=== PATIENT | female | born 1965 ===

== ENCOUNTER 2023-05-11 13:45 | Emergency (ER) | payer OTHER, SELFPAY ==
[2023-05-11] VITALS (12 sets, daily range): BP systolic 136–147; BP diastolic 85–95; PULSE 86–103; RESP 18–20; TEMP 36.2; O2SAT 94–99; BMI 66.3
--- NOTE | 2023-05-11 14:12 | ED_ITS ---
HPI - General Adult General Time Seen by Provider: 14:13 Date Seen: 05/11/23 Chief complaint: Flank Pain Stated complaint: back pain, shortness of breath, vaginal bleeding Time Seen by Provider: 05/11/23 14:12 Source: patient and RN notes reviewed Mode of arrival: ambulatory Limitations: no limitations History of Present Illness HPI narrative: Yany is a 58-year-old female coming in with initially concern of a kidney stone. She has had a little right flank pain, sometimes she feels wrap around into the abdominal area. She is maybe noticed blood in her urination but on questioning she is actually wearing a pad. She notes if she coughs she will have bleeding. She admits she is not sure if the bloods from urine or vaginal. She is postmenopausal about 15 years ago. There is no fevers, able to eat and drink fine. She has had a history of a kidney stone in did have to have surgical intervention before. No fevers or chills. Related Data Home Medications Medication Instructions Recorded Confirmed DGL PO 11/09/22 pamabrom 50 mg tablet (Diurex Max) mg PO 11/09/22 11/09/22 slippery elm bark 400 mg capsule mg PO 11/09/22 11/09/22 Previous Rx's Medication Instructions Recorded omeprazole 20 mg capsule,delayed 20 mg PO QDAY #20 caps 12/01/22 release Allergies Allergy/AdvReac Type Severity Reaction Status Date / Time codeine Allergy Severe Verified 11/09/22 15:52 Review of Systems Status of ROS: Reports: 6 or more systems reviewed and unremarkable except as noted in History and below PFSH PFS Medical History Extreme obesity ?E66.8 - Other obesity (ICD-10) Chronic shortness of breath ?R06.02 - Shortness of breath (ICD-10) Depression ?F32.A - Depression, unspecified (ICD-10) TESSA on CPAP ?G47.33 - Obstructive sleep apnea (adult) (pediatric) (ICD-10) ?Z99.89 - Dependence on other enabling machines and devices (ICD-10) GERD (gastroesophageal reflux disease) ?K21.9 - Gastro-esophageal reflux disease without esophagitis (ICD-10) Family History Father Coronary artery disease Diabetes Brother CHF (congestive heart failure) Mother Osteoporosis Social History Smoking Status: Never smoker Do you use any of these nicotine containing products: None Second hand tobacco smoke exposure: Yes How often do you have a drink containing alcohol: never How often do you have six or more drinks on one occasion: Never AUDIT-C Alcohol total score: 0 Non-prescribed substance use: denies use service: No Exam Const: Vital Signs, click to edit/add: Vital Signs - 24 hr 05/11/23 13:57 05/11/23 16:01 05/11/23 16:15 Temperature 97.1 F L Pulse Rate 97 90 Pulse Rate [Pulse Oximeter] 100 Respiratory Rate 20 Blood Pressure Blood Pressure [Ri ght Forearm] 136/85 Pulse Oximetry 98 96 98 Oxygen Delivery Me thod Room Air 05/11/23 16:30 05/11/23 16:45 05/11/23 17:00 Temperature Pulse Rate 95 98 88 Pulse Rate [Pulse Oximeter] Respiratory Rate Blood Pressure Blood Pressure [Ri ght Forearm] Pulse Oximetry 96 99 97 Oxygen Delivery Me thod 05/11/23 17:21 05/11/23 17:30 05/11/23 17:38 Temperature Pulse Rate 103 H 92 86 Pulse Rate [Pulse Oximeter] Respiratory Rate 18 Blood Pressure 147/95 H Blood Pressure [Ri ght Forearm] Pulse Oximetry 97 96 96 Oxygen Delivery Me thod 05/11/23 17:45 05/11/23 18:00 05/11/23 18:15 Temperature Pulse Rate 101 H 98 96 Pulse Rate [Pulse Oximeter] Respiratory Rate Blood Pressure Blood Pressure [Ri ght Forearm] Pulse Oximetry 95 96 94 Oxygen Delivery Me thod This is a very pleasant 58-year-old female that is alert, interactive, no apparent distress. Sclera clear, conjugate gaze, normal speech. Face appears normal. Lungs are clear, good air entry, no wheezing or crackles. Can see an old midline lower lumbar well-healed surgical scar. She has no midline tenderness over back. There is no reproducible musculoskeletal/chest wall tenderness. CV regular rate and rhythm, no murmur, normal S1-S2. Abdomen is obese, not tender but body habitus makes any appreciate leblanc for any organomegaly very difficult. Patient still dressed, sitting in the chair in the room. She was ambulatory in the ED of her own accord. Documenting provider has reviewed patient's vital signs: yes Course Course ED Course: First and foremost, have reviewed with patient that we need to ascertain if this is vaginal bleeding verses blood in her urine. With her reports of wearing a pad and having blood with coughing and sneezing, do think this largely represents vaginal bleeding. Will have nursing staff help patient disrobed and at least try to do an external pelvic exam. Reevaluation(s) Time of Reevaluation #1: 14:43 Reevaluation #1: Just completed external pelvic exam, blood is definitely coming vaginally. Body habitus precludes bimanual examination. Will attempt to see if we can do a pelvic ultrasound. She believes she went through menopause about 15 years ago. At this time, will proceed with pelvic ultrasound, get basic labs including a CBC to ensure she is not significantly anemic. Confirmed with patient that she has been bleeding since last Sunday, did taper down for few days. Time of Reevaluation #2: 16:37 Reevaluation #2: Reviewed with patient we are proceeding with a CT of her abdomen, noncontrast as she is quite a difficult vascular access. That difficulty in finding blood for lab draw. In any event, I really want the CT for assessment of possible underlying urinary obstruction with stones. Reviewed that her urinalysis is difficult to interpret in the setting of her postmenopausal bleeding but there is a lot of white cells and no squamous epithelial cells. They tell me at this time that they just moved there cares down here so that they would have to travel to the [facility]. We did discuss the postmenopausal bleeding, we are waiting the radiologist over-read. We did discuss that she is going to need to see OB Gyne for further workup an endometrial biopsy, we reviewed that this would be outpatient at this time and will not happen in the ED. Time of Reevaluation #3: 18:40 Reevaluation #3: Reviewed with patient that her CT is not showing any acute intra-abdominal pathology, certainly no kidney stones. Reviewed with her that I did speak with the security investigator on-call, she agrees that she absolutely needs to follow-up. At this time, she is not hemodynamically unstable, hemoglobin is normal and bleeding is not at a concerning level causing symptomatology, can discharge for outpatient follow-up. I stressed to her the importance of follow-up in postmenopausal bleeding. It is imperative that endometrial cancer is ruled out or found early. She does understand this. Patient has had 2 pregnancies before. Consultations Consultation #1: Did speak with Dr. Fraser on-call for [facility]. Reviewed the case. She agrees that patient does need endometrial sampling. We did discuss potential concerns with her BMI, she does believe that she can follow-up with them and they can at least consult. Time: 18:33 Vital Signs Vital signs: Initial Vital Signs Temperature 97.1 F L 05/11/23 13:57 Temperature Source Temporal Artery Scan 05/11/23 13:57 Pulse Rate 100 05/11/23 13:57 Pulse Rhythm Regular 05/11/23 13:57 Respiratory Rate 20 05/11/23 13:57 Blood Pressure 136/85 05/11/23 13:57 Blood Pressure Mean 102 05/11/23 13:57 Blood Pressure Position Sitting 05/11/23 13:57 Pulse Oximetry 98 05/11/23 13:57 Oxygen Delivery Method Room Air 05/11/23 13:57 Vital Signs Temperature 97.1 F L 05/11/23 13:57 Pulse Rate 100 05/11/23 13:57 Respiratory Rate 20 05/11/23 13:57 Blood Pressure 136/85 05/11/23 13:57 Pulse Oximetry 98 05/11/23 13:57 Oxygen Delivery Method Room Air 05/11/23 13:57 Temperature 97.1 F L 05/11/23 13:57 Pulse Rate 96 05/11/23 18:15 Respiratory Rate 18 05/11/23 17:38 Blood Pressure 147/95 H 05/11/23 17:38 Pulse Oximetry 94 05/11/23 18:15 Oxygen Delivery Method Room Air 05/11/23 13:57 Medical Decision Making Lab Data Lab results reviewed: Yes I reviewed the patient's lab results Labs: Lab Results 05/11/23 05/11/23 Range/Units 15:45 15:50 WBC 12.55 H (4.50-11.00) K/uL RBC 5.42 H (4.00-5.20) m/uL Hgb 15.0 (12.0-16.0) gm/dL Hct 47.4 (33.0-51.0) % MCV 88 (80-100) fL MCH 28 (26-34) pg MCHC 32 (32-36) gm/dL RDW Coeff of Chente 14.3 (11.5-15.5) % Plt Count 246 (140-440) K/uL Neut % (Auto) 69.2 (42.0-72.0) % Lymph % (Auto) 20.6 (20-44) % [place] % (Auto) 7.2 (0.0-11.0) % Eos % (Auto) 2.6 (0.0-7.0) % Baso % (Auto) 0.1 (0.0-3.0) % Neut # (Auto) 8.70 H (1.7-7.0) K/uL Lymph # (Auto) 2.60 (0.90-2.90) K/uL [place] # (Auto) 0.90 (0.00-0.90) K/UL Eos # (Auto) 0.30 (0.00-0.50) K/uL Baso # (Auto) 0.00 (0.00-0.30) K/uL Abs Immat Gran (auto) 0.00 (0.00-0.30) K/uL Imm/Tot Granulo (auto) 0.3 % Sodium 139 (135-149) mmol/L Potassium 3.7 (3.6-5.1) mmol/L Chloride 105 (96-114) mmol/L Carbon Dioxide 21 (20-32) mmol/L Anion Gap 13 (7-15) mEq/L BUN 12 (7-30) mg/dL Creatinine 0.6 (0.5-1.5) mg/dL Estimated Creat Clear 95.68 Estimated GFR 104 ml/min Glucose 115 (60-115) mg/dL Calcium 9.3 (8.4-10.6) mg/dL Total Bilirubin 0.5 (0.1-1.5) mg/dL AST 40 H (12-35) U/L ALT 25 (4-35) U/L Alkaline Phosphatase 114 (40-150) U/L C-Reactive Protein 2.6 H (0.5-1.0) mg/dL Total Protein 8.5 H (6.0-8.3) g/dL Albumin 4.4 (3.3-5.0) g/dL Urine Color Brown A (Yellow) Urine Appearance Cloudy A (Clear) Urine pH 5.5 (5.0-8.5) Ur Specific [place] 1.020 (1.000-1.030) Urine Protein 1+ A (Negative) Urine Glucose (UA) Negative (Negative) Urine Ketones Negative (Negative) Urine Blood 3+ A (Negative) Urine Nitrite Negative (Negative) Urine Bilirubin Negative (Negative) Urine Urobilinogen 0.2 (0.2-1.0) Ur Leukocyte Esterase 1+ A (Negative) Urine RBC >100 A (0-2) Urine WBC >100 A (0-5) Ur Squamous Epith Cells None (None-Few) Urine Bacteria Few A (None) Imaging Data US pelvis: Attestation: I have reviewed the pertinent imaging results. Radiologist's impression: Patient: KATI REED Facility:?[facility] Patient ID:?[id number] Site Patient ID:?[id number]. Site :?[id number] Study:?US Pelvis TRANSABDOMINAL AND TRANSVAGINAL-05/11/2023 3:23:17 PM Ordering Physician:?Vitor Flaherty Final Report: INDICATION: Postmenopausal bleeding. TECHNIQUE: Ultrasound pelvis transabdominal and transvaginal for better assessment or to better visualize the endometrium. Real-time sonographic images with spectral and color Doppler imaging of the ovaries were obtained. COMPARISON: None. FINDINGS: Uterus: 9.2 x 4.7 x 5.5 cm. Normal echotexture of the myometrium. Incidental 2.0 centimeter fundal submucosal fibroid. Endometrium: Transvaginal imaging was performed to better evaluate the endometrium. Endometrial thickness measures 17 mm, with some scant vascularity. No sign of endometrial mass or fluid. Bilateral ovaries are not visualized. Cul-de-sac: No significant free fluid. IMPRESSION: Thickened endometrium for a postmenopausal female, measuring 17 millimeters. Recommend direct visualization for tissue sampling. Additional incidental 2.0 centimeter fundal submucosal fibroid. Dictated by Cole Chapman MD @ 05/11/2023 4:32:45 PM (Electronic Signature) CT scan - abdomen: Attestation: I have reviewed the pertinent imaging results. Radiologist's impression: Patient: KATI REED Facility:?[facility] Patient ID:?[id number] Site Patient ID:?[id number]. Site :?[id number] Study:?CT Abdomen/Pelvis W/O-05/11/2023 5:21:15 PM Ordering Physician:Omar Flaherty Final Report: INDICATION: Right flank pain. TECHNIQUE: CT abdomen and pelvis without contrast. COMPARISON: None. FINDINGS: Lower chest: Scattered atelectasis. Moderate hiatal hernia. Liver: Normal in size and attenuation. No suspicious masses. Gallbladder and bile ducts: Biliary sludge. Pancreas: Unremarkable. No mass or inflammation. Spleen: Normal in size. No masses. Adrenal glands: Tiny right adrenal nodule. Kidneys: Normal in size. Punctate left nonobstructing renal stone. No suspicious masses, or hydronephrosis. GI tract: Moderate colonic stool burden. Normal in caliber. No sign of mass or inflammation. Normal appendix. Vasculature: Abdominal aorta is normal in caliber. Lymph nodes: No lymphadenopathy. Peritoneum/Abdominal Wall: Tiny fat containing umbilical hernia. No sign of mass or infiltration. No free air or significant free fluid. Pelvis: Unremarkable. No pelvic masses. Bones: Unremarkable for age. IMPRESSION: No acute intra-abdominal/pelvic abnormality, including obstructive uropathy. Moderate colonic stool burden. Punctate left-sided nonobstructing renal stone. Please note that all CT scans at this facility use dose modulation, iterative reconstruction, and/or weight-based dosing when appropriate to reduce radiation dose to as low as reasonably achievable. Dictated by Cole Chapman MD @ 05/11/2023 6:25:52 PM (Electronic Signature) Critical Care Time Critical Care Time Critical Care Time: No Discharge Plan Discharge Clinical Impression: Post-menopausal bleeding Patient Disposition: Home, Self-Care Condition: Stable Instructions: Endometrial Biopsy (DC) Additional Instructions: You will need to have endometrial tissue obtained, hopefully they will be able to do this in office with an endometrial biopsy. [facility], phone number is [phone]. Let them know you were in the ER, that you are having postmenopausal bleeding and you need to get into the clinic to be evaluated. In the interim if your bleeding is becoming heavy where you are bleeding through heavy pad hourly for more than 2 hours, or feeling symptomatic such as lightheaded dizzy or short of breath, do need to be re-evaluated. Activity Level: Activity as Tolerated Prescriptions: No Action DGL PO slippery elm bark 400 mg capsule PO Diurex Max 50 mg tablet PO omeprazole 20 mg capsule,delayed release(DR/EC) 20 mg PO QDAY Qty: 20 0RF Follow Up/Referrals: Provider,Not a Local [Primary Care Provider] - Stand Alone Forms: MyHealth Info Instructions
--- NOTE | 2023-05-11 14:43 | CRLHL7_ITS ---
For Patients: As a result of the Century Cures Act, medical imaging exams and procedure reports are released immediately into your electronic medical record. You may view this report before your referring provider. If you have questions, please contact your health care provider. INDICATION: Postmenopausal bleeding. TECHNIQUE: Ultrasound pelvis transabdominal and transvaginal for better assessment or to better visualize the endometrium. Real-time sonographic images with spectral and color Doppler imaging of the ovaries were obtained. COMPARISON: None. FINDINGS: Uterus: 9.2 x 4.7 x 5.5 cm. Normal echotexture of the myometrium. Incidental 2.0 centimeter fundal submucosal fibroid. Endometrium: Transvaginal imaging was performed to better evaluate the endometrium. Endometrial thickness measures 17 mm, with some scant vascularity. No sign of endometrial mass or fluid. Bilateral ovaries are not visualized. Cul-de-sac: No significant free fluid. IMPRESSION: Thickened endometrium for a postmenopausal female, measuring 17 millimeters. Recommend direct visualization for tissue sampling. Additional incidental 2.0 centimeter fundal submucosal fibroid. Dictated by Cole Chapman MD @ 05/11/2023 4:32:45 PM (Electronically Signed)
[2023-05-11 15:57] LABS: Basophils Percent Auto 0.1 % (0.0-3.0); Eosinophils Percent Auto 2.6 % (0.0-7.0); Hematocrit 47.4 % (33.0-51.0); Immature Granulocytes Pct Auto 0.3 %; Lymphocytes Percent Auto 20.6 % (20-44); Mean Corpuscular HGB Conc 32 gm/dL (32-36); Mean Corpuscular Hemoglobin 28 pg (26-34); Mean Corpuscular Volume 88 fL (80-100); Monocytes Percent Auto 7.2 % (0.0-11.0); Neutrophils Percent Auto 69.2 % (42.0-72.0); Platelet Count* 246 K/uL (140-440); RDW Coefficient of Variation % 14.3 % (11.5-15.5); Red Blood Count 5.42 m/uL (4.00-5.20); White Blood Count* 12.55 K/uL (4.50-11.00)
[2023-05-11 16:05] LABS: Appearance Urine Cloudy (Clear); Bilirubin Urine Negative (Negative); Blood Urine 3+ (Negative); Color Urine Brown (Yellow); Glucose Urine Negative (Negative); Ketones Urine Negative (Negative); Leukocyte Esterase Urine 1+ (Negative); Nitrite Urine Negative (Negative); Protein Urine 1+ (Negative); Urobilinogen Urine 0.2 (0.2-1.0); pH Urine 5.5 (5.0-8.5)
[2023-05-11 16:13] LABS: Slide Review Reflex No
[2023-05-11 16:16] LABS: RBC Urine >100 (0-2); WBC Urine >100 (0-5)
[2023-05-11 16:17] LABS: Bacteria Urine Few
[2023-05-11 16:19] LABS: Albumin* 4.4 g/dL (3.3-5.0); Chloride* 105 mmol/L (96-114); Potassium* 3.7 mmol/L (3.6-5.1); Sodium* 139 mmol/L (135-149)
[2023-05-11 16:22] LABS: Alanine Aminotransferase* 25 U/L (4-35); Anion Gap 13 mEq/L (7-15); Aspartate Amino Transferase* 40 U/L (12-35); Bilirubin Total* 0.5 mg/dL (0.1-1.5); Blood Urea Nitrogen* 12 mg/dL (7-30); Calcium* 9.3 mg/dL (8.4-10.6); Carbon Dioxide* 21 mmol/L (20-32); Creatinine* 0.6 mg/dL (0.5-1.5); Est. Creatinine Clearance* 95.68; Estimated Glomerular Filt Rate 104 ml/min; Glucose* 115 mg/dL (60-115); Total Protein* 8.5 g/dL (6.0-8.3)
--- NOTE | 2023-05-11 16:31 | CRLHL7_ITS ---
For Patients: As a result of the Century Cures Act, medical imaging exams and procedure reports are released immediately into your electronic medical record. You may view this report before your referring provider. If you have questions, please contact your health care provider. INDICATION: Right flank pain. TECHNIQUE: CT abdomen and pelvis without contrast. COMPARISON: None. FINDINGS: Lower chest: Scattered atelectasis. Moderate hiatal hernia. Liver: Normal in size and attenuation. No suspicious masses. Gallbladder and bile ducts: Biliary sludge. Pancreas: Unremarkable. No mass or inflammation. Spleen: Normal in size. No masses. Adrenal glands: Tiny right adrenal nodule. Kidneys: Normal in size. Punctate left nonobstructing renal stone. No suspicious masses, or hydronephrosis. GI tract: Moderate colonic stool burden. Normal in caliber. No sign of mass or inflammation. Normal appendix. Vasculature: Abdominal aorta is normal in caliber. Lymph nodes: No lymphadenopathy. Peritoneum/Abdominal Wall: Tiny fat containing umbilical hernia. No sign of mass or infiltration. No free air or significant free fluid. Pelvis: Unremarkable. No pelvic masses. Bones: Unremarkable for age. IMPRESSION: No acute intra-abdominal/pelvic abnormality, including obstructive uropathy. Moderate colonic stool burden. Punctate left-sided nonobstructing renal stone. Please note that all CT scans at this facility use dose modulation, iterative reconstruction, and/or weight-based dosing when appropriate to reduce radiation dose to as low as reasonably achievable. Dictated by Cole Chapman MD @ 05/11/2023 6:25:52 PM (Electronically Signed)
[2023-05-11 17:13] LABS: Alkaline Phosphatase* 114 U/L (40-150)
[2023-05-11 17:32] LABS: C Reactive Protein* 2.6 mg/dL (0.5-1.0)
--- NOTE | 2023-05-13 12:25 | ED.NURSE ---
no treatment needed per Dr. Ho.
== END 2023-05-11 18:48 | disposition home or self-care (01) ==
PROVIDERS: Emergency Provider Family Medicine
DX: N92.4 Excessive bleeding in the premenopausal period (principal)
CPT/HCPCS: 36415; 74176; 76830; 76856; 80053; 81001; 84443; 85025; 86140; 87086; 87186; 99284; 99285

== ENCOUNTER 2023-08-13 12:28 | Outpatient (CLI) | payer OTHER, SELFPAY | END 2023-08-13 12:29 | disposition home or self-care (01) | PROVIDERS: PCP Family Medicine; Visit Provider Family Medicine | DX: R06.02 Shortness of breath (principal); Z13.228 Encounter for screening for other metabolic disorders; Z13.220 Encounter for screening for lipoid disorders; Z13.29 Encounter for screening for other suspected endocrine disorder | CPT/HCPCS: 80053; 80061; 83880; 84443 ==

== ENCOUNTER 2023-08-27 07:42 | Outpatient (CLI) | payer OTHER, SELFPAY | END 2023-08-27 07:43 | disposition home or self-care (01) | PROVIDERS: PCP Family Medicine; Visit Provider Family Medicine | DX: R06.02 Shortness of breath (principal) | CPT/HCPCS: 93306 ==

== ENCOUNTER 2023-09-20 08:14 | Outpatient (RCR) | payer OTHER, SELFPAY ==
[2023-09-20] MEDS: REGADENOSON 0.4 MG/5 ML SYRINGE IVP (09:15)
[2023-09-20] MEDS: SODIUM CHLORIDE 0.9 % (FLUSH) 10 ML SYRINGE IVF (09:15)
--- NOTE | 2023-09-20 09:34 | W.PM.STED ---
Stress Test Note Date Date Seen: 09/20/23 Date of test: 09/20/23 Providers Primary care provider: Lazaro Mckenzie Stress test physician: Krystina Adler Stress Test Note Stress test ordered: Lexiscan Indication for test: Shortness of breath Stress test medicine: Lexiscan Results discussion: Resting EKG: Sinus rhythm, 61 beats per minute. Some artifact. Poor R-wave progression in anterior precordial leads. Resting BP: 132/84 Stress test: Patient had a non walking Lexiscan. She had shortness of breath with the injection of the regadenoson. This resolved rather quickly. No chest pain noted. She had a maximal blood pressure of 176/77. No arrhythmia and no concerning ischemic change noted during EKG monitoring. Nuclear medicine images are pending to couple this test for full formal diagnostic. Patient was discharged from my portion of this test in stable condition. Impression: Subjective shortness of breath but negative EKG portion of this Lexiscan. Follow up suggested: Await nuclear medicine imaging to couple this for a full formal diagnostic.
[2023-09-20 09:43] VITALS: BP 166/77; PULSE 82
== END 2023-10-02 23:59 | disposition home or self-care (01) ==
LOC: STRESS 08:14
PROVIDERS: PCP Family Medicine; Visit Provider Family Medicine
DX: R06.02 Shortness of breath (principal); R07.9 Chest pain, unspecified
CPT/HCPCS: 78452; 93016; 93017; A9500; J2785

== ENCOUNTER 2024-10-02 11:55 | Outpatient (CLI) | payer OTHER, SELFPAY | END 2024-10-02 11:56 | disposition home or self-care (01) | LOC: NFLDREF 10-08 05:16 | PROVIDERS: PCP Family Medicine; Referring Provider Family Medicine; Visit Provider Family Medicine | DX: R73.03 Prediabetes (principal); Z13.6 Encounter for screening for cardiovascular disorders | CPT/HCPCS: 80053; 80061 ==

== ENCOUNTER 2024-10-16 06:21 | Outpatient (CLI) | payer OTHER, SELFPAY ==
--- NOTE | 2024-10-16 08:13 | P.ANES_ITS ---
Anesthesia Charges Start Date/Time Anesthesia Start Date: 10/16/24 Anesthesia Start Time: 07:32 Stop Date/Time Anesthesia Stop Date: 10/16/24 Anesthesia Stop Time: 08:10 Coding CPT Codes CPT Codes: ANES LWR INTST NDSC NOS - 43833 ([id number]) P3 - PATIENT W/SEVERE SYS DISEASE, QX - CHEMICAL PROCESS OPERATOR SVC W/ MD MED DIRECTION, QK - QUARTER SUPERVISOR 2-4 CNCRNT ANES PROC
--- NOTE | 2024-10-16 08:13 | W.ANESCHARGE ---
Anesthesia Charges Start Date/Time Anesthesia Start Date: 10/16/24 Anesthesia Start Time: 07:32 Stop Date/Time Anesthesia Stop Date: 10/16/24 Anesthesia Stop Time: 08:10 Coding CPT Codes CPT Codes: ANES LWR INTST NDSC NOS - 69504 ([id number]) P3 - PATIENT W/SEVERE SYS DISEASE, QX - RESIDENCY DIRECTOR SVC W/ MD MED DIRECTION, QK - DESIGN ANALYST 2-4 CNCRNT ANES PROC
--- NOTE | 2024-10-16 09:47 | P.ANES_ITS ---
Anesthesia Charges Start Date/Time Anesthesia Start Date: 10/16/24 Anesthesia Start Time: 07:32 Stop Date/Time Anesthesia Stop Date: 10/16/24 Anesthesia Stop Time: 08:10 Coding CPT Codes CPT Codes: ANES LWR INTST NDSC NOS - 36984 ([id number]) QK - ROTARY DERRICK OPERATOR 2-4 CNCRNT ANES PROC, QX - PERFUME COMPOUNDER SVC W/ MD MED DIRECTION, P3 - PATIENT W/SEVERE SYS DISEASE
--- NOTE | 2024-10-16 09:47 | W.ANESCHARGE ---
Anesthesia Charges Start Date/Time Anesthesia Start Date: 10/16/24 Anesthesia Start Time: 07:32 Stop Date/Time Anesthesia Stop Date: 10/16/24 Anesthesia Stop Time: 08:10 Coding CPT Codes CPT Codes: ANES LWR INTST NDSC NOS - 50452 ([id number]) QK - ALUMINUM BOAT INSPECTOR 2-4 CNCRNT ANES PROC, QX - CLINICAL CODER SVC W/ MD MED DIRECTION, P3 - PATIENT W/SEVERE SYS DISEASE
== END 2024-10-16 06:22 | disposition home or self-care (01) ==
LOC: OP CLINIC 06:22
PROVIDERS: PCP Family Medicine; Visit Provider Surgery
DX: Z12.11 Encounter for screening for malignant neoplasm of colon (principal); D12.2 Benign neoplasm of ascending colon; D12.0 Benign neoplasm of cecum; D12.3 Benign neoplasm of transverse colon; Z86.0109 Personal history of other colon polyps
CPT/HCPCS: 00811; 00812; 45385; 88305; J2704

== ENCOUNTER 2024-12-30 15:21 | Outpatient (CLI) | payer OTHER, SELFPAY ==
--- NOTE | 2024-12-30 15:40 | CRLHL7_ITS ---
For Patients: As a result of the Century Cures Act, medical imaging exams and procedure reports are released immediately into your electronic medical record. You may view this report before your referring provider. If you have questions, please contact your health care provider. INDICATION: BILATERAL SCREENING MAMMOGRAM, ASYMPTOMATIC 59 Y/O FEMALE COMPARISON: 12/08/2020, 11/27/2019, 08/14/2017 TECHNIQUE: Digital mammogram in CC and MLO projections including computer-aided detection (CAD) and tomosynthesis. BREAST COMPOSITION: There are scattered areas of fibroglandular density. FINDINGS: No suspicious findings. ASSESSMENT: BI-RADS 1 Negative RECOMMENDATION: Annual screening mammogram. A lay language report of this examination will be provided to the patient. Dictated by: Artemio Pace MD @ 01/05/2025 10:46:56 (Electronically Signed)
--- OUTSIDE RECORDS SUMMARY | 2024-12-31 00:31 | XMS_ITS | Encounter Summary ---
Author Organization [place] Address [address] [place] [address] Care Team Providers Care Corporate Associate Name Role Phone Sadie Rush MD Primary Care Provider [phone] Kimberly Astorga PA-C Primary Care Pr ovider Olivia Parish MD Primary Care Provider Olivia Parish MD Unavailable [phone] Olivia Parish MD Unavailable [phone] Olivia Parish MD Unavailable [phone] Chuck Clark MD Unavailable [phone] Serena Liriano MD Unavailable Amanda Miguel DO Unavailable [phone] Regan Knight MD Unavailable Olivia Parish MD Unavailable + [phone] Nya Harrell APRN HAND MARKER Unavaila ble Kimberly Astorga PA-C Unavailable Olivia Parish MD Unavailable [phone] Olivia Parish MD Unavailable [phone] Kimberly Astorga PA-C Unavailable Encounter Details Date Type Department Care Team (Late st Contact Info) Description 04/19/2012 MyC Medical Advice [facility] [id number] [place] [phone] Sadie Rush MD [address] [place] [address] Social History Tobacco Use Types Packs/Day Years Used Date Smoking Tobacco: Never Smokeless Tobacco: Never Alcohol Use Standard Drinks/Week Comments No 0 (1 standard drink = 0.6 oz pur e alcohol) Comments No Sex and Gender Information Value Date Recorded Sex Assigned at Not on file 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 Gender Identity Not on file Sexual Orientation Straight 10/28/2020 3: 40 PM CDT 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 on file Not on file Not on file documented as of this encounter Plan of Treatment Not on file documented as of this encounter Visit Diagnoses Not on filedocumented in this encounter Care Teams Corporate Associate Relationship Specialty Start Date End Date Sadie Rush MD PCP - General 11/21/07 07/05/14 Kimberly Astorga PA-C [address] [place] [address] PCP - General Physician Psychiatric Security Nurse 07/06/14 04/07/18 [place] [address] [place] [address] PCP - General Family Practice 04/08/18 [place] [address] [place] [address] PCP - Assigned PCP 08/05/17 09/03/18 [place] [address] [place] [address] Assigned PCP 11/23/19 12/04/20 [place] [address] [place] [address] Assigned PCP 08/05/17 11/22/19 Chuck Clark MD [address] [facility] [address] [place] [address] Assigned Heart and Vascular Provider 04/23/20 04/23/21 Serena Liriano MD 516 [facility] 88 [place], [place] [address] Assigned Cancer Care Provider 04/23/20 12/04/20 Amanda Miguel DO [address] [facility] 100 [place] [address] Assigned OBGYN Provider 04/23/20 Regan Knight MD [facility] [address] [place] [address] Assigned Surgical Provider 09/15/20 12/11/20 [place] [address] [place] [address] Assigned PCP 12/05/20 05/05/22 Nya Harrell, ADMINISTRATIVE SUPPORT COORDINATOR HAND MARKER [facility] 450 [place], [place] [address] Assigned Surgical Provider 12/12/20 03/05/21 Kimberly Astorga PA-C [address] [place] [address] Assigned PCP 05/06/22 10/13/22 [place] [address] [place] [address] Assigned PCP 12/02/22 11/21/23 [place] [address] [place] [address] Assigned PCP 10/14/22 12/01/22 Kimberly Astorga PA-C [address] [place] [address] Assigned PCP 11/22/23 05/23/24 documented as of this encounter
--- OUTSIDE RECORDS SUMMARY | 2024-12-31 00:31 | XMS_ITS | Encounter Summary ---
Author Organization [facility] Address [address] [place] [address] Care Team Providers Care Middle School Band Teacher Name Role Phone Sadie Rush MD Primary Care Provider [phone] Kimberly Astorga PA-C Primary Care Pr ovider Olivia Parish MD Primary Care Provider Olivai Parish MD Unavailable [phone] Olivia Parish MD Unavailable [phone] Olivia Parish MD Unavailable [phone] Chuck Clark MD Unavailable [phone] Serena Liriano MD Unavailable Amanda Miguel DO Unavailable [phone] Regan Knight MD Unavailable Olivia Parish MD Unavailable [phone] Nya Harrell APRN ICU TECH Unavaila ble Kimberly Astorga PA-C Unavailable Olivia Parish MD Unavailable [phone] Olivia Parish MD Unavailable [phone] Kimberly Astorga PA-C Unavailable Encounter Details Date Type Department Care Team (Late st Contact Info) Description 07/21/2011 MyC Medical Advice [facility] [address] [place] [phone] Sadie Rush MD [address] [place] [address] Social History Tobacco Use Types Packs/Day Years Used Date Smoking Tobacco: Never Smokeless Tobacco: Never Alcohol Use Standard Drinks/Week Comments Yes 0 (1 standard drink = 0.6 oz pur e alcohol) rare Comments No Sex and Gender Information Value Date Recorded Sex Assigned at Not on file Legal Sex Female 3:43 AM SAIL FINISHER HAND Gender Identity Not on file Sexual Orientation Straight 10/28/2020 3: 40 PM CDT 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 Not on file Not on file documented as of this encounter Plan of Treatment Not on file documented as of this encounter Visit Diagnoses Not on filedocumented in this encounter Care Teams Middle School Band Teacher Relationship Specialty Start Date End Date Sadie Rush MD PCP - General 11/21/07 07/05/14 Kimberly Astorga PA-C [address] [place] [address] PCP - General Physician Patent Paralegal 07/06/14 04/07/18 [place] [address] [place] [address] PCP - General Family Practice 04/08/18 [place] [address] [place] [address] PCP - Assigned PCP 08/05/17 09/03/18 [place] [address] [place] [address] Assigned PCP 11/23/19 12/04/20 [place] [address] [place] [address] Assigned PCP 08/05/17 11/22/19 Chuck Clark MD [address] [facility] [address] [place] [address] Assigned Heart and Vascular Provider 04/23/20 04/23/21 Serena Liriano MD 516 [facility] 88 [place], [place] [address] Assigned Cancer Care Provider 04/23/20 12/04/20 Amanda Miguel DO [address] [place] [facility] 100 [place] [address] Assigned OBGYN Provider 04/23/20 Regan Knight MD [facility] [address] [place] [address] Assigned Surgical Provider 09/15/20 12/11/20 [place] [address] [place] [address] Assigned PCP 12/05/20 05/05/22 Nya Harrell, ASSOCIATE VETERINARIAN ICU TECH [address] [facility] [address] [facility] 450 [place], [place] [address] Assigned Surgical Provider 12/12/20 03/05/21 Kimberly Astorga PA-C [address] [place] [address] Assigned PCP 05/06/22 10/13/22 [place] [address] [place] [address] Assigned PCP 12/02/22 11/21/23 [place] [address] [place] [address] Assigned PCP 10/14/22 12/01/22 Kimberly Astorga PA-C [address] [place] [address] Assigned PCP 11/22/23 05/23/24 documented as of this encounter
--- OUTSIDE RECORDS SUMMARY | 2024-12-31 00:31 | XMS_ITS | Encounter Summary ---
Author Organization [place] Address [address] [place] [address] Care Team Providers Care Dimensional Engineer Name Role Phone Olivia Parish MD Primary Care Provider Olivia Parish MD Unavailable [phone] Olivia Parish MD Unavailable [phone] Chuck Clark MD Unavailable [phone] Serena Liriano MD Unavailable Amanda Miguel DO Unavailable [phone] Regan Knight MD Unavailable Olivia Parish MD Unavailable [phone] Nya Harrell APRN COAT PADDER Unavaila ble Kimberly AstorgaC Unavailable Olivia Parish MD Unavailable [phone] Olivia Parish MD Unavailable [phone] Kimberly Astorga PA-C Unavailable Encounter Details Date Type Department Care Team (Late st Contact Info) Description 02/25/[address] [phone] Lance Betancourt PA-C [address] [place] [address] [place] [address] Social History Tobacco Use Types Packs/Day Years Used Date Smoking Tobacco: Never Smokeless Tobacco: Never Alcohol Use Standard Drinks/Week Comments No 0 (1 standard drink = 0.6 oz pur e alcohol) PHQ-2 Answer Date Recorded PHQ-2 Score 0 10/31/2018 Comments No Sex and Gender Information Value Date Recorded Sex Assigned at Not on file Legal Sex Female 3:43 AM E COMMERCE MERCHANT Gender Identity Not on file Sexual Orientation Straight 10/28/2020 3: 40 PM CDT 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 Not on file Not on file documented as of this encounter Plan of Treatment Not on file documented as of this encounter Visit Diagnoses Not on filedocumented in this encounter Additional Health Concerns Assessment Noted Time PHQ-9 Depression Total Score: 0 11/01/19 19 3:18 PM CDT documented as of this encounter Care Teams Dimensional Engineer Relationship Specialty Start Date End Date Olivia Parish MD PCP - General Family Practice 04/08/18 [place] [address] [place] [address] Assigned PCP 11/23/19 12/04/20 [place] [address] [place] [address] Assigned PCP 08/05/17 11/22/19 Chuck Clark MD [address] [place] [address] [place] [address] Assigned Heart and Vascular Provider 04/23/20 04/23/21 Serena Liriano MD 516 [facility] 88 [place] [address] Assigned Cancer Care Provider 04/23/20 12/04/20 Amanda Miguel DO [address] [facility] [place] 100 [place] [address] Assigned OBGYN Provider 04/23/20 Regan Knight MD [facility] [address] [place] [address] Assigned Surgical Provider 09/15/2006/21 [place] [address] [place] [address] Assigned PCP 12/05/20 05/05/22 Nya Harrell APRN COAT PADDER 420 [facility] 450 [place], [place] [address] Assigned Surgical Provider 12/12/2003/05/21 Kimberly Astorga PA-C [address] [place] [address] Assigned PCP 05/06/22 10/13/22 [place] [address] [place] [address] Assigned PCP 12/02/22 11/21/23 [place] [address] [place] [address] Assigned PCP 10/14/22 12/01/22 Kimberly Astorga PA-C [address] [place] [address] Assigned PCP 11/22/23 05/23/24 documented as of this encounter
--- OUTSIDE RECORDS SUMMARY | 2024-12-31 00:31 | XMS_ITS | Encounter Summary ---
Author Organization [place] Address [address] [place] [address] Care Team Providers Care Iron Worker Name Role Phone Olivia Parish MD Primary Care Provider Olivia Parish MD Unavailable [phone] Kimberly Astorga PA-C Unavailable Olivia Parish MD Unavailable [phone] Olivia Parish MD Unavailable [phone] Kimberly Astorga PA-C Unavailable Encounter Details Date Type Department Care Team (Late st Contact Info) Description 05/02/2021 [facility] Medical Advice [facility] [address] [phone] Lance Betancourt PA-C [address] [address] Social History Tobacco Use Types Packs/Day Years Used Date Smoking Tobacco: Never Smokeless Tobacco: Never Alcohol Use Standard Drinks/Week Comments No 0 (1 standard drink = 0.6 oz pur e alcohol) PHQ-2 Answer Date Recorded PHQ-2 Score 0 04/12/2021 Comments No Sex and Gender Information Value Date Recorded Sex Assigned at Not on file Legal Sex Female 3:43 AM STENCIL INSPECTOR Gender Identity Not on file Sexual Orientation Straight 10/28/2020 3: 40 PM CDT 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 No / Unsure 04/12/2021 4:44 PM CDT documented as of this encounter Plan of Treatment Not on file documented as of this encounter Visit Diagnoses Not on filedocumented in this encounter Additional Health Concerns Assessment Noted Time PHQ-9 Depression Total Score: 0 04/13/20 7:02 AM CDT documented as of this encounter Care Teams Iron Worker Relationship Specialty Start Date End Date Olivia Parish MD PCP - General Family Practice 04/08/18 [place] [address] [place] [address] Assigned PCP 12/05/20 05/05/22 Kimberly Astorga PA-C [address] [place] [address] Assigned PCP 05/06/22 10/13/22 [place] [address] [place] [address] Assigned PCP 12/02/22 11/21/23 [place] [address] [place] [address] Assigned PCP 10/14/22 12/01/22 Kimberly Astorga PA-C [address] [place] [address] Assigned PCP 11/22/23 05/23/24 documented as of this encounter
--- OUTSIDE RECORDS SUMMARY | 2024-12-31 00:31 | XMS_ITS | Encounter Summary ---
Author Organization [facility] Address [address] [place] [address] Care Team Providers Care Small Parts Assembler Name Role Phone Olivia Parish MD Primary Care Provider Olivia Parish MD Unavailable [phone] Olivia Parish MD Unavailable [phone] Chuck Clark MD Unavailable [phone] Serena Liriano MD Unavailable [phone] Amanda Miguel DO Unavailable [phone] Regan Knight MD Unavailable Olivia Parish MD Unavailable [phone] Nya Harrell APRN EMPLOYEE SERVICE OFFICER Unavaila ble Kimberly AstorgaC Unavailable Olivia Parish MD Unavailable [phone] Olivia Parish MD Unavailable [phone] Kimberly Astorga PA-C Unavailable Reason for Visit * Reason Onset Date Comments Miguel Ahart Communication 02/25/2019 Encounter Details Date Type Department Care Team (Late st Contact Info) Description 02/25/2019 [facility] [place] [address] [facility], [address] [place] [address] [place] [address] [address] [place], [place] [phone] MyChart Communication Social History Tobacco Use Types Packs/Day Years Used Date Smoking Tobacco: Never Smokeless Tobacco: Never Alcohol Use Standard Drinks/Week Comments No 0 (1 standard drink = 0.6 oz pur e alcohol) PHQ-2 Answer Date Recorded PHQ-2 Score 0 10/31/2018 Comments No Sex and Gender Information Value Date Recorded Sex Assigned at Not on file Legal Sex Female 3:43 AM MEDIA/INSTRUCTIONAL DESIGNER Gender Identity Not on file Sexual Orientation Straight 10/28/2020 3: 40 PM CDT 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 uS Valladares RN -- [employer] * Telephone Encounter - Olivia Parish MD - 02/26/2019 1:39 PM CDT Not sure what med she is talking about, if it is the naltrexone, she can just stop it * Telephone Encounter - Su Valladares RN - 02/25/2019 4:[address] Parish, Please see below. Thank you. Su Valladares RN -- [employer] documented in this encounter Plan of Treatment Not on file documented as of this encounter Visit Diagnoses Not on filedocumented in this encounter Additional Health Concerns Assessment Noted Time PHQ-9 Depression Total Score: 0 11/01/19 19 3:18 PM CDT documented as of this encounter Care Teams Small Parts Assembler Relationship Specialty Start Date End Date Olivia Parish MD PCP - General Family Practice 04/08/18 [place] [address] [place] [address] Assigned PCP 11/23/19 12/04/20 [place] [address] [place] [address] Assigned PCP 08/05/17 11/22/19 Chuck Clark MD [address] [facility] [address] [place] [address] Assigned Heart and Vascular Provider 04/23/20 04/23/21 Serena Liriano MD 6 [facility] 88 [place], [place] [address] Assigned Cancer Care Provider 04/23/20 12/04/20 Amanda Miguel DO [address] [facility] [place] [address] [place] [address] Assigned OBGYN Provider 04/23/20 Regan Knight MD [facility] [address] [place] 6967[address] Assigned Surgical Provider 09/15/2006/21 [place] [address] [place] [address] Assigned PCP 12/05/20 05/05/22 Nya Harrell APRN EMPLOYEE SERVICE OFFICER [address] [facility] [address] [facility] [address] [place] [address] Assigned Surgical Provider 12/12/2003/05/21 Kimberly Astorga PA-C [address] [place] [address] Assigned PCP 05/06/22 10/13/22 [place] [address] [place] [address] Assigned PCP 12/02/22 11/21/23 [place] [address] [place] [address] Assigned PCP 10/14/22 12/01/22 Kimberly Astorga PA-C [address] [place] [address] Assigned PCP 11/22/23 05/23/24 documented as of this encounter
--- OUTSIDE RECORDS SUMMARY | 2024-12-31 00:31 | XMS_ITS | Encounter Summary ---
Author Organization [place] Address [address] [place] [address] Care Team Providers Care Manager Supply Chain Planning Name Role Phone Olivia Parish MD Primary Care Provider Olivia Parish MD Unavailable + Olivia Parish MD Unavailable [phone] Chuck Clark MD Unavailable [phone] Serena Liriano MD Unavailable Amanda Miguel DO Unavailable [phone] Regan Knight MD Unavailable [phone] Olivia Parish MD Unavailable [phone] Nya Harrell APRN ROLLER LEVELER OPERATOR Unavaila ble Kimberly Astorga PA-C Unavailable Olivia Parish MD Unavailable [phone] Olivia Parish MD Unavailable [phone] Kimberly Astorga PA-C Unavailable Encounter Details Date Type Department Care Team (Late st Contact Info) Description 09/30/2019 MyC Medical Advice [address], [address] [place] [address] Sarai Mishra Social History Tobacco Use Types Packs/Day Years Used Date Smoking Tobacco: Never Smokeless Tobacco: Never Alcohol Use Standard Drinks/Week Comments No 0 (1 standard drink = 0.6 oz pur e alcohol) PHQ-2 Answer Date Recorded PHQ-2 Score 1 07/17/2019 Comments No Sex and Gender Information Value Date Recorded Sex Assigned at Not on file Legal Sex Female 3:43 AM IRRIGATION TEACHER Gender Identity Not on file Sexual Orientation Straight 10/28/2020 3: 40 PM CDT 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 No / Unsure 10/03/2019 8:06 AM CDT documented as of this encounter Plan of Treatment Not on file documented as of this encounter Visit Diagnoses Not on filedocumented in this encounter Additional Health Concerns Assessment Noted Time PHQ-9 Depression Total Score: 2 07/17/19 20 2:14 PM IRRIGATION TEACHER documented as of this encounter Care Teams Manager Supply Chain Planning Relationship Specialty Start Date End Date Olivia Parish MD PCP - General Family Practice 04/08/18 [place] [address] [place] [address] Assigned PCP 11/23/19 12/04/20 [place] [address] [place] [address] Assigned PCP 08/05/17 11/22/19 Chuck Clark MD [address] [facility] [address] [place] [address] Assigned Heart and Vascular Provider 04/23/20 04/23/21 Serena Liriano MD [address] [address] Assigned Cancer Care Provider 04/23/20 12/04/20 Amanda Miguel DO [address] [facility] [address] [place] [address] Assigned OBGYN Provider 04/23/20 Regan Knight MD [facility] [address] [place] [address] Assigned Surgical Provider 09/15/2006/21 [place] [address] [place] [address] Assigned PCP 12/05/20 05/05/22 Nya Harrell APRN ROLLER LEVELER OPERATOR [address] [place] [address] 450 [place] [address] Assigned Surgical Provider 12/12/2003/05/21 Kimberly Astorga PA-C [address] [place] [address] Assigned PCP 05/06/22 10/13/22 [place] [address] [place] [address] Assigned PCP 12/02/22 11/21/23 [place] [address] [place] [address] Assigned PCP 10/14/22 12/01/22 Kimberly Astorga PA-C [address] [place] [address] Assigned PCP 11/22/23 05/23/24 documented as of this encounter
--- OUTSIDE RECORDS SUMMARY | 2024-12-31 00:31 | XMS_ITS | Encounter Summary ---
Author Organization [place] Address [address] [place] [address] Care Team Providers Care Roof Painter Name Role Phone Olivia Parish MD Primary Care Provider Olivia Parish MD Unavailable + Olivia Parish MD Unavailable [phone] Chuck Clark MD Unavailable [phone] Serena Liriano MD Unavailable Amanda Miguel DO Unavailable [phone] Regan Knight MD Unavailable Olivia Parish MD Unavailable [phone] Nya Harrell APRN BILINGUAL SPANISH INBOUND SALES Unavaila ble Kimberly Astorga PA-C Unavailable Olivia Parish MD Unavailable [phone] Olivia Parish MD Unavailable [phone] Kimberly Astorga PA-C Unavailable Encounter Details Date Type Department Care Team (Late st Contact Info) Description 10/17/2019 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 No / Unsure 10/10/2019 9:10 AM CDT documented as of this encounter Plan of Treatment Not on file documented as of this encounter Visit Diagnoses Not on filedocumented in this encounter Additional Health Concerns Assessment Noted Time PHQ-9 Depression Total Score: 2 07/17/19 20 2:14 PM ACCOUNTING LECTURER documented as of this encounter Care Teams Roof Painter Relationship Specialty Start Date End Date Olivia Parish MD PCP - General Family Practice 04/08/18 [place] [address] [place] [address] Assigned PCP 11/23/19 12/04/20 [place] [address] [place] [address] Assigned PCP 08/05/17 11/22/19 Chuck Clark MD [address] [place] [address] [place] [address] Assigned Heart and Vascular Provider 04/23/20 04/23/21 Serena Liriano MD [address] [facility] 88 [place] [address] Assigned Cancer Care Provider 04/23/20 12/04/20 Amanda Miguel DO [address] [facility] [address] [place] [address] Assigned OBGYN Provider 04/23/20 Regan Knight MD [facility] [address] [place] [address] Assigned Surgical Provider 09/15/2006/21 [place] [address] [place] [address] Assigned PCP 12/05/20 05/05/22 Nya Harrell APRN BILINGUAL SPANISH INBOUND SALES 420 [facility] 450 [place], [place] [address] Assigned Surgical Provider 12/12/2003/05/21 Kimberly Astorga PA-C [address] [place] [address] Assigned PCP 05/06/22 10/13/22 [place] [address] [place] [address] Assigned PCP 12/02/22 11/21/23 [place] [address] [place] [address] Assigned PCP 10/14/22 12/01/22 Kimberly Astorga PA-C [address] [place] [address] Assigned PCP 11/22/23 05/23/24 documented as of this encounter
--- OUTSIDE RECORDS SUMMARY | 2024-12-31 00:31 | XMS_ITS | Encounter Summary ---
Author Organization [place] Address [address] [place] [address] Care Team Providers Care Auricular Detoxification Specialist Name Role Phone Olivia Parish MD Primary Care Provider Olivia Parish MD Unavailable + Olivia Parish MD Unavailable [phone] Chuck Clark MD Unavailable [phone] Serena Liriano MD Unavailable Amanda Miguel DO Unavailable [phone] Regan Knight MD Unavailable [phone] Olivia Parish MD Unavailable [phone] Nya Harrell APRN CONTRACT NEGOTIATOR Unavaila ble Kimberly Astorga PA-C Unavailable Olivia Parish MD Unavailable [phone] Olivia Parish MD Unavailable [phone] Kimberly Astorga PA-C Unavailable Encounter Details Date Type Department Care Team (Late st Contact Info) Description 08/25/2019 MyC Medical Advice [address], [address] [place] [address] Sarai Mishra Social History Tobacco Use Types Packs/Day Years Used Date Smoking Tobacco: Never Smokeless Tobacco: Never Alcohol Use Standard Drinks/Week Comments No 0 (1 standard drink = 0.6 oz pur e alcohol) PHQ-2 Answer Date Recorded PHQ-2 Score 1 07/17/2019 Comments No Sex and Gender Information Value Date Recorded Sex Assigned at Not on file Legal Sex Female 3:43 AM ENVIRONMENTAL HEALTH SAFETY MANAGER Gender Identity Not on file Sexual Orientation Straight 10/28/2020 3: 40 PM CDT 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 Not on file Not on file documented as of this encounter Plan of Treatment Not on file documented as of this encounter Visit Diagnoses Not on filedocumented in this encounter Additional Health Concerns Assessment Noted Time PHQ-9 Depression Total Score: 2 07/17/19 20 2:14 PM ENVIRONMENTAL HEALTH SAFETY MANAGER documented as of this encounter Care Teams Auricular Detoxification Specialist Relationship Specialty Start Date End Date Olivia Parish MD PCP - General Family Practice 04/08/18 [place] [address] [place] [address] Assigned PCP 11/23/19 12/04/20 [place] [address] [place] [place] [address] Assigned PCP 08/05/17 11/22/19 Chuck Clark MD [address] [facility] [address] [place] [address] Assigned Heart and Vascular Provider 04/23/20 04/23/21 Serena Liriano MD [address] 229545 Assigned Cancer Care Provider 04/23/20 12/04/20 Amanda Miguel DO [address] [place] [address] Assigned OBGYN Provider 04/23/20 Regan Knight MD [facility] [address] [place] 235205 Assigned Surgical Provider 09/15/2006/21 [place] [address] [place] [address] Assigned PCP 12/05/20 05/05/22 Nya Harrell APRN CONTRACT NEGOTIATOR [address] [place] [address] [address] [place], [place] [address] Assigned Surgical Provider 12/12/2003/05/21 Kimberly Astorga PA-C [address] [place] [address] Assigned PCP 05/06/22 10/13/22 [place] [address] [place] [address] Assigned PCP 12/02/22 11/21/23 [place] [address] [place] [address] Assigned PCP 10/14/22 12/01/22 Kimberly Astorga PA-C [address] [place] [address] Assigned PCP 11/22/23 05/23/24 documented as of this encounter
--- OUTSIDE RECORDS SUMMARY | 2024-12-31 00:31 | XMS_ITS | Encounter Summary ---
Author Organization [place] Address [facility] [place] [address] Care Team Providers Care Curriculum Counselor Name Role Phone Olivia Parish MD Primary Care Provider Olivia Parish MD Unavailable [phone] Kimberly Astorga PA-C Unavailable Olivia Parish MD Unavailable [phone] Olivia Parish MD Unavailable [phone] Kimberly Astorga PA-C Unavailable Encounter Details Date Type Department Care Team (Late st Contact Info) Description 04/29/2021 Miguel A Medical [facility] [address] [phone] Surinder Hill CMA Social History Tobacco Use Types Packs/Day Years Used Date Smoking Tobacco: Never Smokeless Tobacco: Never Alcohol Use Standard Drinks/Week Comments No 0 (1 standard drink = 0.6 oz pur e alcohol) PHQ-2 Answer Date Recorded PHQ-2 Score 0 04/12/2021 Comments No Sex and Gender Information Value Date Recorded Sex Assigned at Not on file Legal Sex Female 3:43 AM CAREER COORDINATOR Gender Identity Not on file Sexual Orientation Straight 10/28/2020 3: 40 PM CDT 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 Not on file Not [...] documented as of this encounter Care Teams Curriculum Counselor Relationship Specialty Start Date End Date Olivia Parish MD PCP - General Family Practice 04/08/18 [place] [address] [place] [address] Assigned PCP 12/05/20 05/05/22 Kimberly Astorga PA-C [address] [place] [address] Assigned PCP 05/06/22 10/13/22 [place] [address] [place] [address] Assigned PCP 12/02/22 11/21/23 [place] [address] [place] [place] [address] Assigned PCP 10/14/22 12/01/22 Kimberly Astorga PA-C [address] [place] [address] Assigned PCP 11/22/23 05/23/24 documented as of this encounter
--- OUTSIDE RECORDS SUMMARY | 2024-12-31 00:31 | XMS_ITS | Encounter Summary ---
Author Organization [facility] Address [address] [place] [address] Care Team Providers Care Process Manufacturing Engineer Name Role Phone Sadie Rush MD Primary Care Provider [phone] Kimberly Astorga PA-C Primary Care Pr ovider Olivia Parish MD Primary Care Provider Olivia Parish MD Unavailable [phone] Olivia Parish MD Unavailable [phone] Olivia Parish MD Unavailable [phone] Chuck Clark MD Unavailable [phone] Serena Liriano MD Unavailable Amanda Miguel DO Unavailable [phone] Regan Knight MD Unavailable Olivia Parish MD Unavailable [phone] Nya Harrell APRN VIDEO SURVEILLANCE TECHNICIAN Unavaila ble Kimberly Astorga PA-C Unavailable Olivia Parish MD Unavailable [phone] Olivia Parish MD Unavailable [phone] Kimberly Astorga PA-C Unavailable Encounter Details Date Type Department Care Team (Late st Contact Info) Description 01/08/2013 [facility] [address] [phone] Lilia Alva Social History Tobacco Use Types Packs/Day Years Used Date Smoking Tobacco: Never Smokeless Tobacco: Never Alcohol Use Standard Drinks/Week Comments No 0 (1 standard drink = 0.6 oz pur e alcohol) Comments No Sex and Gender Information Value Date Recorded Sex Assigned at Not on file 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 Gender Identity Not on file Sexual Orientation Straight 10/28/2020 3: 40 PM CDT 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 Not on file Not on file documented as of this encounter Plan of Treatment Not on file documented as of this encounter Visit Diagnoses Not on filedocumented in this encounter Care Teams Process Manufacturing Engineer Relationship Specialty Start Date End Date Sadie Rush MD PCP - General 11/21/07 07/05/14 Kimberly Astorga PA-C [address] [place] [address] PCP - General Physician Section Laborer 07/06/14 04/07/18 [place] [address] [place] [address] PCP - General Family Practice 04/08/18 [place] [address] [place] [place] [address] PCP - Assigned PCP 08/05/17 09/03/18 [place] [address] [place] [place] [address] Assigned PCP 11/23/19 12/04/20 [place] [address] [place] [place] [address] Assigned PCP 08/05/17 11/22/19 Chuck Clark MD [address] [facility] [address] [place] [address] Assigned Heart and Vascular Provider 04/23/20 04/23/21 Serena Liriano MD 516 [facility] 88 [place], [place] [address] Assigned Cancer Care Provider 04/23/20 12/04/20 Amanda Miguel DO [address] [facility] 100 [place] [address] Assigned OBGYN Provider 04/23/20 Regan Knight MD [facility] [address] [place] [address] Assigned Surgical Provider 09/15/20 12/11/20 [place] [address] [place] [place] [address] Assigned PCP 12/05/20 05/05/22 Nya Harrell APRN VIDEO SURVEILLANCE TECHNICIAN 420 [facility] 450 [place], [place] [address] Assigned Surgical Provider 12/12/20 03/05/21 Kimberly Astorga PA-C [address] [place] [address] Assigned PCP 05/06/22 10/13/22 [place] [address] [place] [address] Assigned PCP 12/02/22 11/21/23 [place] [address] [place] [address] Assigned PCP 10/14/22 12/01/22 Kimbrely Astorga PA-C [address] [place] [address] Assigned PCP 11/22/23 05/23/24 documented as of this encounter
--- OUTSIDE RECORDS SUMMARY | 2024-12-31 00:31 | XMS_ITS | Encounter Summary ---
Author Organization [place] Address [facility] [place] [address] Care Team Providers Care Latex Thread Machine Operator Name Role Phone Olivia Parish MD Primary Care Provider Olivia Parish MD Unavailable [phone] Kimberly Astorga PA-C Unavailable Olivia Parish MD Unavailable [phone] Olivia Parish MD Unavailable [phone] Kimberly Astorga PA-C Unavailable Encounter Details Date Type Department Care Team (Late st Contact Info) Description 04/29/2021 Miguel A Medical [facility] [address] [phone] Surinder Hill CMA Social History Tobacco Use Types Packs/Day Years Used Date Smoking Tobacco: Never Smokeless Tobacco: Never Alcohol Use Standard Drinks/Week Comments No 0 (1 standard drink = 0.6 oz pur e alcohol) PHQ-2 Answer Date Recorded PHQ-2 Score 0 04/12/2021 Comments No Sex and Gender Information Value Date Recorded Sex Assigned at Not on file Legal Sex Female 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 Gender Identity Not on file Sexual Orientation Straight 10/28/2020 3: 40 PM CDT 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 Not on file Not [...] documented as of this encounter Care Teams Latex Thread Machine Operator Relationship Specialty Start Date End Date Olivia Parish MD PCP - General Family Practice 04/08/18 [place] [address] [place] [address] Assigned PCP 12/05/20 05/05/22 Kimberly Astorga PA-C [address] [place] [address] Assigned PCP 05/06/22 10/13/22 [place] [address] [place] [address] Assigned PCP 12/02/22 11/21/23 [place] [address] [place] [place] [address] Assigned PCP 10/14/22 12/01/22 Kimberly Astorga PA-C [address] [place] [address] Assigned PCP 11/22/23 05/23/24 documented as of this encounter
--- OUTSIDE RECORDS SUMMARY | 2024-12-31 00:32 | XMS_ITS | Encounter Summary ---
Author Organization [facility] Address [address] [place] [address] Care Team Providers Care Barrel Rifler Button Name Role Phone Olivia Parish MD Primary Care Provider Olivia Parish MD Unavailable [phone] Chuck Clark MD Unavailable [phone] Serena Liriano MD Unavailable Amanda Miguel DO Unavailable [phone] Regan Knight MD Unavailable Olivia Parish MD Unavailable [phone] Nya Harrell APRN ASSOCIATE BRAND MANAGER Unavaila ble Kimberly Astorga PA-C Unavailable Olivia Parish MD Unavailable [phone] Olivia Parish MD Unavailable [phone] Kimberly Astorga PA-C Unavailable Reason for Visit * Reason Onset Date Comments Medication Update 11/26/2019 Biotin Encounter Details Date Type Department Care Team (Late st Contact Info) Description 11/26/2019 MyC Medical Advice [address], [address] [place] [address] [place] [address] [place] [address] Medication Update (Biotin) Social History Tobacco Use Types Packs/Day Years Used Date Smoking Tobacco: Never Smokeless Tobacco: Never Alcohol Use Standard Drinks/Week Comments No 0 (1 standard drink = 0.6 oz pur e alcohol) PHQ-2 Answer Date Recorded PHQ-2 Score 1 11/26/2019 Comments No Sex and Gender Information Value Date Recorded Sex Assigned at Not on file 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 No / Unsure 11/27/2019 1:57 PM CDT documented as of this encounter Miscellaneous Notes * Telephone Encounter - Olivia Parish MD - 11/27/2019 2:07 PM CDT Please add to her med list and thank her for the update. I will look this up for further info documented in this encounter Plan of Treatment Not on file documented as of this encounter Visit Diagnoses Diagnosis Hair loss- Primary Alopecia, unspecified documented in this encounter Additional Health Concerns Assessment Noted Time PHQ-9 Depression Total Score: 2 11/26/19 20 8:22 AM CDT documented as of this encounter Care Teams Barrel Rifler Button Relationship Specialty Start Date End Date Olivia Parish MD PCP - General Family Practice 04/08/18 [place] [address] [place] [place] [address] Assigned PCP 5/24/20 6/5/21 Chuck Clark MD 6405 [facility] [address] [place] [address] Assigned Heart and Vascular Provider 04/23/20 04/23/21 Serena Liriano MD 516 [facility] 88 [place], [place] [address] Assigned Cancer Care Provider 04/23/20 12/04/20 Amanda Miguel DO [address] [facility] 100 [place] [address] Assigned OBGYN Provider 04/23/20 Regan Knight MD [facility] [address] [place] [address] Assigned Surgical Provider 09/15/2006/21 [place] [address] [place] [address] Assigned PCP 12/05/20 05/05/22 Nya Harrell APRN ASSOCIATE BRAND MANAGER 420 [facility] 450 [place] [address] Assigned Surgical Provider 12/12/2003/05/21 Kimberly Astorga PA-C [address] [place] [address] Assigned PCP 05/06/22 10/13/22 [place] [address] [place] [place] [address] Assigned PCP 12/02/22 11/21/23 [place] [address] [place] [place] [address] Assigned PCP 10/14/22 12/01/22 Kimberly Astorga PA-C [address] [place] [address] Assigned PCP 11/22/23 05/23/24 documented as of this encounter"
--- OUTSIDE RECORDS SUMMARY | 2024-12-31 00:32 | XMS_ITS | Encounter Summary ---
Author Organization [facility] Address [address] [place] [address] Care Team Providers Care Ammonium Nitrate Crystallizer Name Role Phone Sadie Rush MD Primary Care Provider [phone] Kimberly Astorga PA-C Primary Care Pr ovider Olivia Parish MD Primary Care Provider Olivia Parish MD Unavailable [phone] Olivia Parish MD Unavailable [phone] Olivia Parish MD Unavailable [phone] Chuck Clark MD Unavailable [phone] Serena Liriano MD Unavailable Amanda Miguel DO Unavailable [phone] Regan Knight MD Unavailable Olivia Parish MD Unavailable [phone] Nya Harrell APRN EDUCATION AND TRAINING MANAGER Unavaila ble Kimberly Astorga PA-C Unavailable Olivia Parish MD Unavailable [phone] Olivia Parish MD Unavailable [phone] Kimberly Astorga PA-C Unavailable Encounter Details Date Type Department Care Team (Late st Contact Info) Description 08/13/2010 Medical Correspondence [facility] [address] [place] [phone] Sadie Rush MD [address] [place] [address] Social History Tobacco Use Types Packs/Day Years Used Date Smoking Tobacco: Never Alcohol Use Standard Drinks/Week Comments Yes 0 (1 standard drink = 0.6 oz pur e alcohol) rare Comments No Sex and Gender Information Value Date Recorded Sex Assigned at Not on file 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 Gender Identity Not on file Sexual Orientation Straight 10/28/2020 3: 40 PM CDT 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 Not on file Not on file documented as of this encounter Plan of Treatment Not on file documented as of this encounter Visit Diagnoses Not on filedocumented in this encounter Care Teams Ammonium Nitrate Crystallizer Relationship Specialty Start Date End Date Sadie Rush MD PCP - General 11/21/07 07/05/14 Kimberly Astorga PA-C [address] [place] [address] PCP - General Physician Geriatric Case Manager 07/06/14 04/07/18 [place] [address] [place] [address] PCP - General Family Practice 04/08/18 [place] [address] [facility] [place] [place] [address] PCP - Assigned PCP 08/05/17 09/03/18 [place] [address] [place] [place] [address] Assigned PCP 11/23/19 12/04/20 [place] [address] [address] [place] 60[address] Assigned PCP 08/05/17 11/22/19 Chuck Clark MD 6405 [facility] [address] [place] [address] Assigned Heart and Vascular Provider 04/23/20 04/23/21 Serena Liriano MD 516 [facility] 88 [place] [address] Assigned Cancer Care Provider 04/23/20 12/04/20 Amanda Miguel DO [address] [facility] 100 [place] [address] Assigned OBGYN Provider 04/23/20 Regan Knight MD [facility] [address] [address] Assigned Surgical Provider 09/15/20 12/11/20 [place] [address] [place] [place] [address] Assigned PCP 12/05/20 05/05/22 Nya Harrell APRN EDUCATION AND TRAINING MANAGER [address] [place] [address] 450 [place] [address] Assigned Surgical Provider 12/12/20 03/05/21 Kimberly Astorga PA-C [address] [place] [address] Assigned PCP 05/06/22 10/13/22 [place] [address] [place] [address] Assigned PCP 12/02/22 11/21/23 [place] [address] [address] [place] 63247[address] Assigned PCP 10/14/22 12/01/22 Kimberly Astorga PA-C [address] [place] [address] Assigned PCP 11/22/23 05/23/24 documented as of this encounter
--- OUTSIDE RECORDS SUMMARY | 2024-12-31 00:32 | XMS_ITS | Clinical Summary ---
Author Organization [place] Address [address] [place] [address]. [place] [address] Care Team Providers Care President [employer] Name Role Phone Olivia Praish MD Primary Care Provider Allergies Active Allergy Reactions Criticality Noted Date Comments Codeconcepcion Nausea 01/15/2015 Makes her sick Medications multivitamin, therapeutic (THERA-VIT) TABS Take 1 tablet by mouth daily Active [place]-3 Fatty Acids (FISH OIL EXTRA STRENGTH) 1200 MG CAPS Take 1,200 mg by mouth daily Active metoprolol succinate ER (TOPROL-XL) 25 MG 24 hr tabletIndications:PS VT (paroxysmal supraventricular tachycardia),Lighthe adedness Take 0.5 tablets (12.5 mg) by mouth daily 45 tablet 1 1 Active Active Problems Problem Noted Date Diagnosed Date Morbid obesity 12/02/2020 External hemorrhoids 07/10/2019 Overview (07/10/2019): Added automatically from request for surgery [id number] Obstructive sleep apnea syndrome 08/03/2017 Nephrolithiasis 07/17/2014 Leiomyoma of uterus 05/12/2013 Overview (04/02/2015): Problem list name updated by automated process. Provider to review Low HDL (under 40) 04/19/2012 Anxiety 08/21/2011 GERD (gastroesophageal reflux disease) 2 CARDIOVASCULAR SCREENING; LDL GOAL LESS THAN 160 05/01/2010 Menometrorrhagia 03/09/2010 Major depressive disorder, recurrent episode, se gwendolyn 02/25/2010 Overview (04/02/2015): Problem list name updated by automated process. Provider to review PSVT (paroxysmal supraventricular tachycardia) Resolved Problems Problem Noted Date Diagnosed Date Resolved Date Chronic right-sided low back pain 11/14/2019 02/16/2020 Generalized muscle weakness 11/14/2019 02/16/2020 Morbid obesity 05/10/2017 02/16/2020 Morbid obesity with BMI of 50.0-59.9, adult 05/12/2013 03/15/2018 Weight loss, intentional 04/15/2012 Obesity, Class III, BMI 40-4 9.9 (morbid obesity) 04/15/2012 03/15/2018 Pap smear cannot exclude hig h grade squamous intraepithelial lesion (ASC-H) 02/09/2010 0 Overview (02/05/2020): 11/06/07: ASCUS, Neg HPV 02/09/10: ASC H pap. 04/08/10: [place] - RADHA I 10/24/10: NIL pap, neg HPV 04/15/12: NIL pap. Plan pap in 1 yr. 05/12/12: NIL pap 05/12/13: NIL pap, neg HPV. Plan cotest pap & HPV in 3 years. 11/28/16: NIL pap, Neg HR HPV. Plan cotest in 3 years. 01/29/20: NIL Pap, Neg HR HPV. Plan routine screening. Obesity 11/06/2007 03/15/2018 Overview (04/02/2015): Problem list name updated by automated process. Provider to review Immunizations Immunization Administration Dates Next Due HepA-Peds, Unspecified 05/08/1996 Influenza Vaccine 18-64 (Flublok) 04/12/2021 TD,PF 7+ (Tenivac) 11/05/2005 TDAP Vaccine (Boostrix) 04/15/2012 Td (Adult), Adsorbed 02/24/2005,09/17/1995 Zoster recombinant adjuvanted (Shingrix) 020,11/19/2019 Family History Medical History Relation Comments Heart Disease Brother 1 congenital heart defect IHS-alive 39 yo Heart Failure Brother 2 alive 46 Substance Abuse Brother 3 Coronary Artery Disease Brother 4 Genetic Disorder Brother 4 IHS Substance Abuse Brother 4 Obesity Brother 5 Arthritis Father back Coronary Artery Disease Father Diabetes Father at 6 4 years old Heart Disease Father Rhematic Fever Obesity Father Respiratory Father Ashma Cardiovascular Maternal Grandfather at 40 from heart attack Alzheimer Disease Maternal Grandmother Hyperlipidemia Mother Osteoporosis Mother early stages-bor n in 1942 Obesity Nephew Went on keto t last 2 years lost over 200 lbs normal bmi now Family History Negative Paternal Grandfather Anesthesia Reaction Paternal Grandmother Family History Negative Paternal Grandmother Obesity Paternal Grandmother Breast Cancer No family hx of Colon Cancer No family hx of Ovarian Cancer No family hx of Uterine Cancer No family hx of Relation Status Comments Brother 1 Brother 2 Brother 3 Brother 4 Brother 5 Father Maternal Grandfather Maternal Grandmother Mother Alive Nephew Paternal Grandfather Paternal Grandmother Son Alive Social History Tobacco Use Types Packs/Day Years Used Date Smoking Tobacco: Never Smokeless Tobacco: Never Alcohol Use Standard Drinks/Week Comments No 0 (1 standard drink = 0.6 oz pur e alcohol) PHQ-2 Answer Date Recorded PHQ-2 Score 0 04/12/2021 Adolescent Education Answer Date Record ed Getting School Help Needed Not on file 04/16 Comments No Sex and Gender Information Value Date Recorded Sex Assigned at Not on file Legal Sex Female 3: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 Gender Identity Not on file Sexual Orientation Straight 10/28/2020 3: 40 PM CDT 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 Not on file Not on file Last Filed Vital Signs Vital Sign Reading Time Taken Comments Blood Pressure 113/62 04/12/2021 4:52 PM CDT Pulse 62 04/12/2021 4:52 PM CDT Temperature 36.8 C (98.2 F) 04/12/2021 4:52 PM CDT Respiratory Rate 14 04/12/2021 4:52 PM CDT Oxygen Saturation 98% 12/02/2020 1:23 PM CDT Inhaled Oxygen Concentration - - Weight 132.5 kg (292 lb) 04/29/2021 1:10 PM CDT Height 168.9 cm (5' 6.5) 04/29/2021 1:10 PM CDT Body Mass Index 46.42 04/29/2021 1:10 PM CDT Plan of Treatment Not on file Medical Devices Implanted Type Area Compression Molding Machine Tender Device Identifier Shelf Expiration Date Model / Serial / Lot Stent Ureteral Dbl Pigtail Inlay [id number] Implanted:Qty: 1 on 08/06/2014 by Jose Saez MD at [facility] Right: Ureter CR [employer] 01/29/2019 [id number] / / [id number] Insurance [employer] Advance Directives For more information, please contact: [phone] * Full Code (Latest Code Status on File) Date Activated Date Inactivated Comments 07/18/2014 9:21 AM 07/31/2019 5:29 AM * Full Code Date Activated Date Inactivated Comments 07/17/2014 11:35 PM 07/18/2014 9:21 AM Care Teams President [employer] Relationship Specialty Start Date End Date Olivia Parish MD PCP - General Family Practice 04/08/18
--- OUTSIDE RECORDS SUMMARY | 2024-12-31 00:32 | XMS_ITS | Encounter Summary ---
Author Organization [facility] Address [address] [place] [address] Care Team Providers Care Health Physicist Name Role Phone Sadie Rush MD Primary Care Provider [phone] Kimberly Astorga PA-C Primary Care Pr ovider Olivia Parish MD Primary Care Provider Olivia Parish MD Unavailable [phone] Olivia Parish MD Unavailable [phone] Olivia Parish MD Unavailable [phone] Chuck Clark MD Unavailable [phone] Serena Liriano MD Unavailable Amanda Miguel DO Unavailable [phone] Regan Knight MD Unavailable Olivia Parish MD Unavailable +[phone] Nya Harrell APRN CLINICAL RESEARCH ASSISTANT Unavaila ble Kimberly Astorga PA-C Unavailable Olivia Parish MD Unavailable [phone] Olivia Parish MD Unavailable [phone] Kimberly Astorga PA-C Unavailable Encounter Details Date Type Department Care Team (Late st Contact Info) Description 03/24/2011 [facility] Medical Advice [address] [address] Zakiya [facility] Social History Tobacco Use Types Packs/Day Years Used Date Smoking Tobacco: Never Alcohol Use Standard Drinks/Week Comments Yes 0 (1 standard drink = 0.6 oz pur e alcohol) rare Comments No Sex and Gender Information Value Date Recorded Sex Assigned at Not on file Legal Sex Female 3:43 AM REGISTERED NURSE [employer] Gender Identity Not on file Sexual Orientation Straight 10/28/2020 3: 40 PM CDT 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 Not on file Not on file documented as of this encounter Plan of Treatment Not on file documented as of this encounter Visit Diagnoses Not on filedocumented in this encounter Care Teams Health Physicist Relationship Specialty Start Date End Date Sadie Rush MD PCP - General 11/21/07 07/05/14 Kimberly Astorga PA-C [address] [place] [address] PCP - General Physician Clinical Trial Associate 07/06/14 04/07/18 [place] [address] [place] [address] PCP - General Family Practice 04/08/18 [place] [address] [address] [address] PCP - Assigned PCP 08/05/17 09/03/18 [place] [address] [place] [address] Assigned PCP 11/23/19 12/04/20 [place] [address] [place] [address] Assigned PCP 08/05/17 11/22/19 Chuck Clark MD [address] [facility] [address] [place] [address] Assigned Heart and Vascular Provider 04/23/20 04/23/21 Serena Liriano MD 516 [facility] 88 [place], [place] [address] Assigned Cancer Care Provider 04/23/20 12/04/20 Amanda Miguel DO [address] [facility] 100 [place] [address] Assigned OBGYN Provider 04/23/20 Regan Knight MD [facility] [address] [place] [address] Assigned Surgical Provider 09/15/20 12/11/20 [place] [address] [place] [address] Assigned PCP 12/05/20 05/05/22 Nya Harrell APRN CLINICAL RESEARCH ASSISTANT 420 [facility] 450 [place], [place] [address] Assigned Surgical Provider 12/12/20 03/05/21 Kimberly Astorga PA-C [address] [address] Assigned PCP 05/06/22 10/13/22 [place] [address] [address] [place] [address] Assigned PCP 12/02/22 11/21/23 [place] [address] [address] [address] Assigned PCP 10/14/22 12/01/22 Kimberly Astorga PA-C [address] [address] [address] Assigned PCP 11/22/23 05/23/24 documented as of this encounter
--- OUTSIDE RECORDS SUMMARY | 2024-12-31 00:32 | XMS_ITS | Encounter Summary ---
Author Organization [facility] Address [address] [place] [address] Care Team Providers Care Bread Stacker Name Role Phone Kimberly Astorga PA-C Primary Care Pr ovider Olivia Parish MD Primary Care Provider Olivia Parish MD Unavailable [phone] Olivia Parish MD Unavailable [phone] Olivia Parish MD Unavailable [phone] Chuck Clark MD Unavailable [phone] Serena Liriano MD Unavailable Amanda Miguel DO Unavailable [phone] Regan Knight MD Unavailable Olivia Parish MD Unavailable [phone] Nya Harrell APRN RECREATION WORKER Unavaila ble Kimbrely Astorga PA-C Unavailable Olivia Parish MD Unavailable [phone] Olivia Parish MD Unavailable +[phone] Kimberly Astorga PA-C Unavailable Reason for Visit * Reason Onset Date Comments Medication Problem 05/27/2017 Side effect? Encounter Details Date Type Department Care Team (Late st Contact Info) Description 05/27/2017 [facility] Medical Advice [address], [address] [place] [id number] [place] [address] [place] [address] Medication Problem (Side effect?) Social History Tobacco Use Types Packs/Day Years Used Date Smoking Tobacco: Never Smokeless Tobacco: Never Alcohol Use Standard Drinks/Week Comments No 0 (1 standard drink = 0.6 oz pur e alcohol) Comments No Sex and Gender Information Value Date Recorded Sex Assigned at Not on file Legal Sex Female 3:43 AM IOS PROGRAMMER Gender Identity Not on file Sexual Orientation Straight 10/28/2020 3: 40 PM CDT 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 Not on file Not on file documented as of this encounter Plan of Treatment Not on file documented as of this encounter Visit Diagnoses Not on filedocumented in this encounter Additional Health Concerns Assessment Noted Time PHQ-9 Depression Total Score: 8 05/22/20 17 12:00 PM IOS PROGRAMMER documented as of this encounter Care Teams Bread Stacker Relationship Specialty Start Date End Date Kimbrely Astorga PA-C [address] [place] [address] PCP - General Physician Forklift Truck Mechanic 07/06/14 04/07/18 [place] [address] [place] [address] PCP - General Family Practice 04/08/18 [place] [address] [address] [place] [address] PCP - Assigned PCP 08/05/17 09/03/18 [place] [address] [place] [place] [address] Assigned PCP 11/23/19 12/04/20 [place] [address] [address] [place] 29070[address] Assigned PCP 08/05/17 11/22/19 Chuck Clark MD [address] [facility] [address] [place] [address] Assigned Heart and Vascular Provider 04/23/20 04/23/21 Serena Liriano MD 516 [facility] 88 [place] [address] Assigned Cancer Care Provider 04/23/20 12/04/20 Amanda Miguel DO [address] [facility] 100 [place] [address] Assigned OBGYN Provider 04/23/20 Regan Knight MD [facility] [address] [address] Assigned Surgical Provider 09/15/20 12/11/20 [place] [address] [address] [place] [address] Assigned PCP 12/05/20 05/05/22 Nya Harrell, MANAGER FIXED INCOME RECREATION WORKER [address] [place] [address] 450 [place] [address] Assigned Surgical Provider 12/12/20 03/05/21 Kimberly Astorga PA-C [address] [place] [address] Assigned PCP 05/06/22 10/13/22 [place] [address] [address] [place] [address] Assigned PCP 12/02/22 11/21/23 [place] [address] [place] [address] Assigned PCP 10/14/22 12/01/22 Kimberly Astorga PA-C [address] [place] [address] Assigned PCP 11/22/23 05/23/24 documented as of this encounter
--- OUTSIDE RECORDS SUMMARY | 2024-12-31 00:32 | XMS_ITS | Encounter Summary ---
Author Organization [facility] Address [address] [place] [address] Care Team Providers Care Coffee Maker Servicer Name Role Phone Kimberly Astorga PA-C Primary Care Pr ovider Olivia Parish MD Primary Care Provider Olivia Parish MD Unavailable [phone] Olivia Parish MD Unavailable [phone] Olivia Parish MD Unavailable [phone] Chuck Clark MD Unavailable [phone] Serena Liriano MD Unavailable Amanda Miguel DO Unavailable [phone] Regan Knight MD Unavailable Olivia Parish MD Unavailable [phone] Nya Harrell APRN CTE TEACHER Unavaila ble Kimberly Astorga PA-C Unavailable Olivia Parish MD Unavailable [phone] Olivia Parish MD Unavailable +[phone] Kimberly Astorga PA-C Unavailable Encounter Details Date Type Department Care Team (Late st Contact Info) Description 12/12/2016 [facility] Medical Advice [address] [phone] Scottie Diaz, [place] Social History Tobacco Use Types Packs/Day Years Used Date Smoking Tobacco: Never Smokeless Tobacco: Never Alcohol Use Standard Drinks/Week Comments No 0 (1 standard drink = 0.6 oz pur e alcohol) Comments No Sex and Gender Information Value Date Recorded Sex Assigned at Not on file Legal Sex Female 3:43 AM MOTOR REBUILDER Gender Identity Not on file Sexual Orientation Straight 10/28/2020 3: 40 PM CDT 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 Not on file Not on file documented as of this encounter Plan of Treatment Not on file documented as of this encounter Visit Diagnoses Not on filedocumented in this encounter Additional Health Concerns Assessment Noted Time PHQ-9 Depression Total Score: 8 09/27/19 17 9:09 AM CDT documented as of this encounter Care Teams Coffee Maker Servicer Relationship Specialty Start Date End Date Kimberly Astorga PA-C [address] [place] [address] PCP - General Physician Powderman 07/06/14 04/07/18 [place] [address] [place] [address] PCP - General Family Practice 04/08/18 [place] [address] [place] [place] [address] PCP - Assigned PCP 08/05/17 09/03/18 [place] [address] [place] [place] [address] Assigned PCP 11/23/19 12/04/20 [place] [address] [place] [address] Assigned PCP 08/05/17 11/22/19 Chuck Clark MD [address] [facility] [address] [place] [address] Assigned Heart and Vascular Provider 04/23/20 04/23/21 Serena Liriano MD 516 [facility] 88 [place], [place] [address] Assigned Cancer Care Provider 04/23/20 12/04/20 Amanda Miguel DO [address] [facility] 100 [place] [address] Assigned OBGYN Provider 04/23/20 Regan Knight MD [facility] [address] [place] [address] Assigned Surgical Provider 09/15/20 12/11/20 [place] [address] [place] [address] Assigned PCP 12/05/20 05/05/22 Nya Harrell APRN CTE TEACHER 420 [facility] 450 [place], [place] [address] Assigned Surgical Provider 12/12/20 03/05/21 Kimberly Astorga PA-C [address] [place] [address] Assigned PCP 05/06/22 10/13/22 [place] [address] [place] [address] Assigned PCP 12/02/22 11/21/23 [place] [address] [place] [address] Assigned PCP 10/14/22 12/01/22 Kimberly Astorga PA-C [address] [place] [address] Assigned PCP 11/22/23 05/23/24 documented as of this encounter
--- OUTSIDE RECORDS SUMMARY | 2024-12-31 00:32 | XMS_ITS | Encounter Summary ---
Author Organization [facility] Address [address] [place] [address] Care Team Providers Care Security Guard Name Role Phone Olivia Parish MD Primary Care Provider Olivia Parish MD Unavailable [phone] Chuck Clark MD Unavailable [phone] Serena Liriano MD Unavailable [phone] Amanda Miguel DO Unavailable [phone] Regan Knight MD Unavailable [phone] Olivia Parish MD Unavailable [phone] Nya Harrell APRN MEAL COOK Unavaila ble Kimberly Astorga PA-C Unavailable Olivia Parish MD Unavailable [phone] Olivia Parish MD Unavailable [phone] Kimberly Astorga PA-C Unavailable Reason for Visit * Reason Onset Date Comments Medication Question 01/15/2020 Gabapentin Encounter Details Date Type Department Care Team (Late st Contact Info) Description 01/15/2020 [facility] [address] [address] [place] [address] [place] [place] [address] Medication Question (Gabapentin) Social History Tobacco Use Types Packs/Day Years Used Date Smoking Tobacco: Never Smokeless Tobacco: Never Alcohol Use Standard Drinks/Week Comments No 0 (1 standard drink = 0.6 oz pur e alcohol) PHQ-2 Answer Date Recorded PHQ-2 Score 1 11/26/2019 Comments No Sex and Gender Information Value Date Recorded Sex Assigned at Not on file Legal Sex Female 3:43 AM MEDICAL RECEPTION SPECIALIST Gender Identity Not on file Sexual Orientation Straight 10/28/2020 3: 40 PM CDT 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 I wonder if this is helping her pain? Ok to go back to once per day and see if her anxiety improved. I do not normally hear this type of side effects with gabapentin. We can then talk more at her Follow up appt documented in this encounter Plan of Treatment Not on file documented as of this encounter Visit Diagnoses Not on filedocumented in this encounter Additional Health Concerns Assessment Noted Time PHQ-9 Depression Total Score: 2 11/26/19 20 8:22 AM CDT documented as of this encounter Care Teams Security Guard Relationship Specialty Start Date End Date Olivia Parish MD PCP - General Family Practice 04/08/18 [place] [address] [place] [place] [address] Assigned PCP 11/23/19 12/04/20 Chuck Clark MD [address] [facility] [address] [place] [address] Assigned Heart and Vascular Provider 04/23/20 04/23/21 Serena Liriano MD 516 [facility] 88 [place], [place] [address] Assigned Cancer Care Provider 04/23/20 12/04/20 Amanda Miguel DO [address] [facility] 100 [place] [address] Assigned OBGYN Provider 04/23/20 Regan Knight MD [facility] [address] [place] [address] Assigned Surgical Provider 09/15/2006/21 [place] [address] [place] [address] Assigned PCP 12/05/20 05/05/22 Nya Harrell APRN MEAL COOK 420 [facility] 450 [place] [address] Assigned Surgical Provider 12/12/2003/05/21 Kimberly Astorga PA-C [address] [place] [address] Assigned PCP 05/06/22 10/13/22 [place] [address] [place] [place] [address] Assigned PCP 12/02/22 11/21/23 [place] [address] [place] [address] Assigned PCP 10/14/22 12/01/22 Kimberly Astorga PA-C [address] [place] [address] Assigned PCP 11/22/23 05/23/24 documented as of this encounter
--- OUTSIDE RECORDS SUMMARY | 2024-12-31 00:32 | XMS_ITS | Encounter Summary ---
Author Organization [facility] Address [address] [place] [address] Care Team Providers Care Art Specialist Name Role Phone Sadie Rush MD Primary Care Provider [phone] Kimberly Astorga PA-C Primary Care Pr ovider Olivia Parish MD Primary Care Provider Olivia Parish MD Unavailable [phone] Olivia Parish MD Unavailable [phone] Olivia Parish MD Unavailable [phone] Chuck Clark MD Unavailable [phone] Serena Liriano MD Unavailable Amanda Miguel DO Unavailable [phone] Regan Knight MD Unavailable Olivia Pairsh MD Unavailable +[phone] Nya Harrell APRN MOTOR PATROL OPERATOR Unavaila ble Kimberly Astorga PA-C Unavailable Olivia Parish MD Unavailable [phone] Olivia Parish MD Unavailable [phone] Kimberly Astorga PA-C Unavailable Encounter Details Date Type Department Care Team (Late st Contact Info) Description 11/04/2010 [facility] [place] [address] [place] [address] [facility] Social History Tobacco Use Types Packs/Day Years Used Date Smoking Tobacco: Never Alcohol Use Standard Drinks/Week Comments Yes 0 (1 standard drink = 0.6 oz pur e alcohol) rare Comments No Sex and Gender Information Value Date Recorded Sex Assigned at Not on file Legal Sex Female 3:43 AM DYE WEIGHER Gender Identity Not on file Sexual Orientation Straight 10/28/2020 3: 40 PM CDT 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 Not on file Not on file documented as of this encounter Plan of Treatment Not on file documented as of this encounter Visit Diagnoses Not on filedocumented in this encounter Care Teams Art Specialist Relationship Specialty Start Date End Date Sadie Rush MD PCP - General 11/21/07 07/05/14 Kimberly Astorga PA-C [address] [place] [address] PCP - General Physician Record Changer Tester 07/06/14 04/07/18 [place] [address] [place] [address] PCP - General Family Practice 04/08/18 [place] [address] [facility] [place] [address] PCP - Assigned PCP 08/05/17 09/03/18 [place] [address] [place] [address] Assigned PCP 11/23/19 12/04/20 [place] [address] [place] [address] Assigned PCP 08/05/17 11/22/19 Chuck Clark MD [address] [facility] [address] [place] [address] Assigned Heart and Vascular Provider 04/23/20 04/23/21 Serena Liriano MD 516 [facility] 88 [place], [place] [address] Assigned Cancer Care Provider 04/23/20 12/04/20 Amanda Miguel DO [address] [facility] 100 [place] [address] Assigned OBGYN Provider 04/23/20 Regan Knight MD [facility] [address] [place] [address] Assigned Surgical Provider 09/15/20 12/11/20 [place] [address] [place] [address] Assigned PCP 12/05/20 05/05/22 Nya Harrell, MASS COMMUNICATIONS INSTRUCTOR MOTOR PATROL OPERATOR [address] [facility] 450 [place], [place] [address] Assigned Surgical Provider 12/12/20 03/05/21 Kimberly Astorga PA-C [address] [place] [address] Assigned PCP 05/06/22 10/13/22 [place] [address] [place] [address] Assigned PCP 12/02/22 11/21/23 [place] [address] [place] [address] Assigned PCP 10/14/22 12/01/22 Kimberly Astorga PA-C [address] [place] [address] Assigned PCP 11/22/23 05/23/24 documented as of this encounter
--- OUTSIDE RECORDS SUMMARY | 2024-12-31 00:32 | XMS_ITS | Encounter Summary ---
Author Organization [facility] Address [address] [place] [address] Care Team Providers Care Boilermaker Assembly And Erection Name Role Phone Kimberly Astorga PA-C Primary Care Pr ovider Olivia Parish MD Primary Care Provider Olivia Parish MD Unavailable [phone] Olivia Parish MD Unavailable [phone] Olivia Parish MD Unavailable [phone] Chuck Clark MD Unavailable [phone] Serena Liriano MD Unavailable Amanda Miguel DO Unavailable [phone] Regan Knight MD Unavailable Olivia Parish MD Unavailable [phone] Nya Harrell APRN CLINICAL LAW PROFESSOR Unavaila ble Kimberly Astorga PA-C Unavailable Olivia Parish MD Unavailable [phone] Olivia Parish MD Unavailable +[phone] Kimberly Astorga PA-C Unavailable Reason for Visit * Reason Onset Date Comments Medication Problem 05/26/2017 Side effects Encounter Details Date Type Department Care Team (Late st Contact Info) Description 05/26/2017 [facility] Medical Advice [address], [address] [place] [address] [place] [address] [address] [place], [place] [address] Medication Problem (Side effects) Social History Tobacco Use Types Packs/Day Years Used Date Smoking Tobacco: Never Smokeless Tobacco: Never Alcohol Use Standard Drinks/Week Comments No 0 (1 standard drink = 0.6 oz pur e alcohol) Comments No Sex and Gender Information Value Date Recorded Sex Assigned at Not on file Legal Sex Female 3:43 AM ADMISSIONS MANAGER Gender Identity Not on file Sexual Orientation Straight 10/28/2020 3: 40 PM CDT 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 documented in this encounter Additional Health Concerns Assessment Noted Time PHQ-9 Depression Total Score: 8 05/22/20 17 12:00 PM ADMISSIONS MANAGER documented as of this encounter Care Teams Boilermaker Assembly And Erection Relationship Specialty Start Date End Date Kimberly Astorga PA-C [address] [place] [address] PCP - General Physician Him Tech 07/06/14 04/07/18 [place] [address] [place] [address] PCP - General Family Practice 04/08/18 [place] [address] [place] [place] [address] PCP - Assigned PCP 08/05/17 09/03/18 [place] [address] [address] 8134368 Assigned PCP 11/23/19 12/04/20 [place] [address] [address] [place] [address] Assigned PCP 08/05/17 11/22/19 Chuck Clark MD [address] [place] [address] Assigned Heart and Vascular Provider 04/23/20 04/23/21 Serena Liriano MD 6 [facility] 88 [place], [place] [address] Assigned Cancer Care Provider 04/23/20 12/04/20 Amanda Miguel DO [address] [facility] 100 [place], [place] [address] Assigned OBGYN Provider 04/23/20 Regan Knight MD [facility] [address] [address] Assigned Surgical Provider 09/15/20 12/11/20 [place] [address] [place] [address] Assigned PCP 12/05/20 05/05/22 Nya Harrell APRN CLINICAL LAW PROFESSOR [address] [place] [address] 450 [place] [address] Assigned Surgical Provider 12/12/20 03/05/21 Kimberly Astorga PA-C [address] [place] [address] Assigned PCP 05/06/22 10/13/22 [place] [address] [place] [address] Assigned PCP 12/02/22 11/21/23 [place] [address] [place] [address] Assigned PCP 10/14/22 12/01/22 Kimberly Astorga PA-C [address] [place] [address] Assigned PCP 11/22/23 05/23/24 documented as of this encounter
--- OUTSIDE RECORDS SUMMARY | 2024-12-31 00:32 | XMS_ITS | Encounter Summary ---
Author Organization [facility] Address [address] [place] [address] Care Team Providers Care Tree Expert Name Role Phone Olivia Parish MD Primary Care Provider Olivia Parish MD Unavailable [phone] Olivia Parish MD Unavailable [phone] Chuck Clark MD Unavailable [phone] Serena Liriano MD Unavailable [phone] Amanda Miguel DO Unavailable [phone] Regan Knight MD Unavailable Olivia Parish MD Unavailable [phone] Nya Harrell APRN AGRICULTURAL EXTENSION SPECIALIST Unavaila ble Kimberly Astorga PA-C Unavailable Olivia Parish MD Unavailable [phone] Olivia Parish MD Unavailable [phone] Kimberly Astorga PA-C Unavailable Encounter Details Date Type Department Care Team (Late st Contact Info) Description 07/10/2019 [facility] Colon [facility]al Surgery [address] [phone] CorderoGosia feliciano Social History Tobacco Use Types Packs/Day Years Used Date Smoking Tobacco: Never Smokeless Tobacco: Never Alcohol Use Standard Drinks/Week Comments No 0 (1 standard drink = 0.6 oz pur e alcohol) PHQ-2 Answer Date Recorded PHQ-2 Score 0 10/31/2018 Comments No Sex and Gender Information Value Date Recorded Sex Assigned at Not on file Legal Sex Female 3:43 AM FOREST SUPERVISOR Gender Identity Not on file Sexual Orientation Straight 10/28/2020 3: 40 PM CDT 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 Not on file Not on file documented as of this encounter Plan of Treatment Not on file documented as of this encounter Visit Diagnoses Not on filedocumented in this encounter Additional Health Concerns Assessment Noted Time PHQ-9 Depression Total Score: 0 11/01/19 19 3:18 PM CDT documented as of this encounter Care Teams Tree Expert Relationship Specialty Start Date End Date Olivia Parish MD PCP - General Family Practice 04/08/18 [place] [address] [address] [id number] Assigned PCP 11/23/19 12/04/20 [place] [address] [address] [address] Assigned PCP 08/05/17 11/22/19 Chuck Clark MD [address] [facility] [address] [place] [address] Assigned Heart and Vascular Provider 04/23/20 04/23/21 Serena Liriano MD 516 [facility] 88 [place], [place] 6[address]85 Assigned Cancer Care Provider 04/23/20 12/04/20 Amanda Miguel DO [address] [facility] [address] [place] [address] Assigned OBGYN Provider 04/23/20 Regan Knight MD [facility] [address] [place] [address] Assigned Surgical Provider 09/15/2006/21 [place] [address] [place] [address] Assigned PCP 12/05/20 05/05/22 Nya Harrell APRN AGRICULTURAL EXTENSION SPECIALIST [address] [place] [address] 450 [place] [address] Assigned Surgical Provider 12/12/2003/05/21 Kimberly Astorga PA-C [address] [place] [address] Assigned PCP 05/06/22 10/13/22 [place] [address] [place] [address] Assigned PCP 12/02/22 11/21/23 [place] [address] [place] [address] Assigned PCP 10/14/22 12/01/22 AasKimberly Busch PA-C [address] [place] [address] Assigned PCP 11/22/23 05/23/24 documented as of this encounter
--- OUTSIDE RECORDS SUMMARY | 2024-12-31 00:32 | XMS_ITS | Encounter Summary ---
Author Organization [facility] Address [address] [place] [address] Care Team Providers Care Batch Tank Controller Name Role Phone Olivia Parish MD Primary Care Provider Olivia Parish MD Unavailable [phone] Chuck Clark MD Unavailable [phone] Serena Liriano MD Unavailable Amanda Miguel DO Unavailable [phone] Regan Knight MD Unavailable [phone] Olivia Parish MD Unavailable [phone] Nya Harrell APRN DIALYSIS CHIEF EQUIPMENT TECHNICIAN Unavaila ble Kimberly Astorga PA-C Unavailable Olivia Parish MD Unavailable [phone] Olivia Parish MD Unavailable [phone] Kimberly Astorga PA-C Unavailable Reason for Visit * Reason Comments Medication Refill Encounter Details Date Type Department Care Team (Late st Contact Info) Description 11/28/[address], [address] [place] [address] [place] [address] [place] [address] Medication Refill Social History Tobacco Use Types Packs/Day Years Used Date Smoking Tobacco: Never Smokeless Tobacco: Never Alcohol Use Standard Drinks/Week Comments No 0 (1 standard drink = 0.6 oz pur e alcohol) PHQ-2 Answer Date Recorded PHQ-2 Score 1 11/26/2019 Comments No Sex and Gender Information Value Date Recorded Sex Assigned at Not on file Legal Sex Female 3:43 AM WOODWIND INSTRUMENTS INSPECTOR Gender Identity Not on file Sexual Orientation Straight 10/28/2020 3: 40 PM CDT 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 on file Not [...] documented as of this encounter Care Teams Batch Tank Controller Relationship Specialty Start Date End Date Olivia Parish MD PCP - General Family Practice 04/08/18 [place] [address] [place] [place] [address] Assigned PCP 11/23/19 12/04/20 Chuck Clark MD [address] [place] [address] [place] 619705 Assigned Heart and Vascular Provider 04/23/20 04/23/21 Serena Liriano MD [address] [address] Assigned Cancer Care Provider 04/23/20 12/04/20 Amanda Miguel DO [address] [facility] [address] [place] [address] Assigned OBGYN Provider 04/23/20 Regan Knight MD [facility] [address] [place] [address] Assigned Surgical Provider 09/15/2006/21 [place] [address] [place] [address] Assigned PCP 12/05/20 05/05/22 Nya Harrell APRN DIALYSIS CHIEF EQUIPMENT TECHNICIAN [address] [place] [address] 450 [place] [address] Assigned Surgical Provider 12/12/2003/05/21 Kimberly Astorga PA-C [address] [place] [address] Assigned PCP 05/06/22 10/13/22 [place] [address] [place] [address] Assigned PCP 12/02/22 11/21/23 [place] [address] [place] [address] Assigned PCP 10/14/22 12/01/22 Kimberly Astorga PA-C [address] [place] [address] Assigned PCP 11/22/23 05/23/24 documented as of this encounter
--- OUTSIDE RECORDS SUMMARY | 2024-12-31 00:33 | XMS_ITS | Encounter Summary ---
Author Organization [facility] Address [address] [place] [address] Care Team Providers Care Gill Tender Name Role Phone Olivia Parish MD Primary Care Provider Olivia Parish MD Unavailable [phone] Chuck Clark MD Unavailable [phone] Serena Liriano MD Unavailable Amanda Miguel DO Unavailable [phone] Regan Knight MD Unavailable Olivia Parish MD Unavailable [phone] Nya Harrell APRN REAL ESTATE ASSET MANAGER Unavaila ble Kimberly Astorga PA-C Unavailable Olivia Parish MD Unavailable [phone] Olivia Parish MD Unavailable [phone] Kimberly Astorga PA-C Unavailable Encounter Details Date Type Department Care Team (Late st Contact Info) Description 04/27/2020 [facility] [address] [place] [phone] [place] [address] [place] [address] Social History Tobacco Use Types Packs/Day Years Used Date Smoking Tobacco: Never Smokeless Tobacco: Never Alcohol Use Standard Drinks/Week Comments No 0 (1 standard drink = 0.6 oz pur e alcohol) PHQ-2 Answer Date Recorded PHQ-2 Score 0 01/22/2020 Comments No Sex and Gender Information Value Date Recorded Sex Assigned at Not on file Legal Sex Female 3:43 AM PASTRY WRAPPER Gender Identity Not on file Sexual Orientation Straight 10/28/2020 3: 40 PM CDT 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 No / Unsure 04/30/2020 9:02 AM CDT documented as of this encounter Miscellaneous Notes * Telephone Encounter - lOga Miles MA - 05/05/2020 7:29 AM CST Script mailed to pt RY WRAPPER documented in this encounter Plan of Treatment Not on file documented as of this encounter Visit Diagnoses Not on filedocumented in this encounter Additional Health Concerns Assessment Noted Time PHQ-9 Depression Total Score: 2 11/26/19 20 8:22 AM CDT documented as of this encounter Care Teams Gill Tender Relationship Specialty Start Date End Date Olivia Parish MD PCP - General Family Practice 04/08/18 [place] [address] [place] [place] [address] Assigned PCP 11/23/19 12/04/20 Chuck Clark MD [address] [place] 4748[address] Assigned Heart and Vascular Provider 04/23/20 04/23/21 Serena Liriano MD 516 [facility] 88 [place], [place] [address] Assigned Cancer Care Provider 04/23/20 12/04/20 Amanda Miguel DO [facility] [address] [place] [address] Assigned OBGYN Provider 04/23/20 Regan Knight MD [facility] [address] [place] 943745 Assigned Surgical Provider 09/15/2006/21 [place] [address] [place] [address] Assigned PCP 12/05/20 05/05/22 Nya Harrell APRN REAL ESTATE ASSET MANAGER 420 [facility] 450 [place] [address] Assigned Surgical Provider 12/12/2003/05/21 Kimberly Astorga PA-C [address] [place] [address] Assigned PCP 05/06/22 10/13/22 [place] [address] [place] [address] Assigned PCP 12/02/22 11/21/23 [place] [address] [place] [place] [address] Assigned PCP 10/14/22 12/01/22 Kimberly Astorga PA-C [address] [place] [address] Assigned PCP 11/22/23 05/23/24 documented as of this encounter
--- OUTSIDE RECORDS SUMMARY | 2024-12-31 00:33 | XMS_ITS | Encounter Summary ---
Author Organization [facility] Address [address] [place] [address] Care Team Providers Care Consultant Internship Name Role Phone Olivia Parish MD Primary Care Provider Olivia Parish MD Unavailable [phone] Chuck Clark MD Unavailable [phone] Serena Liriano MD Unavailable Amanda Miguel DO Unavailable [phone] Regan Knight MD Unavailable Olivia Parish MD Unavailable [phone] Nya Harrell APRN PERSONAL CARE SERVICE PROVIDER Unavaila ble Kimberly Astorga PA-C Unavailable Olivia Parish MD Unavailable [phone] Olivia Parish MD Unavailable [phone] Kimberly Astorga PA-C Unavailable Encounter Details Date Type Department Care Team (Late st Contact Info) Description 01/27/2020 [facility] [address] [address] McFeters, Terrell, RN Social History Tobacco Use Types Packs/Day Years Used Date Smoking Tobacco: Never Smokeless Tobacco: Never Alcohol Use Standard Drinks/Week Comments No 0 (1 standard drink = 0.6 oz pur e alcohol) PHQ-2 Answer Date Recorded PHQ-2 Score 0 01/22/2020 Comments No Sex and Gender Information Value Date Recorded Sex Assigned at Not on file Legal Sex Female 3:43 AM DESIGN COORDINATOR Gender Identity Not on file Sexual Orientation Straight 10/28/2020 3: 40 PM CDT 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 No / Unsure 01/29/2020 1:44 PM CDT documented as of this encounter Plan of Treatment Not on file documented as of this encounter Visit Diagnoses Not on filedocumented in this encounter Additional Health Concerns Assessment Noted Time PHQ-9 Depression Total Score: 2 11/26/19 20 8:22 AM CDT documented as of this encounter Care Teams Consultant Internship Relationship Specialty Start Date End Date Olivia Parish MD PCP - General Family Practice 04/08/18 [place] [address] [place] [address] Assigned PCP 11/23/19 12/04/20 Chuck Clark MD [address] [facility] [address] [place], [place] [address] Assigned Heart and Vascular Provider 04/23/20 04/23/21 Serena Liriano MD [address] [address] Assigned Cancer Care Provider 04/23/20 12/04/20 Amanda Miguel DO [address] [address] [place] [address] Assigned OBGYN Provider 04/23/20 Regan Knight MD [facility] [address] [place], [place] [address] Assigned Surgical Provider 09/15/2006/21 [place] [address] [place] [address] Assigned PCP 12/05/20 05/05/22 Nya Harrell APRN PERSONAL CARE SERVICE PROVIDER [address] [place] [address] 450 [place] [address] Assigned Surgical Provider 12/12/2003/05/21 Kimberly Astorga PA-C [address] [place], [place] [address]608[address] Assigned PCP 05/06/22 10/13/22 [place] [address] [place] [address] Assigned PCP 12/02/22 11/21/23 [place] [address] [address] [place] 6758368 Assigned PCP 10/14/22 12/01/22 Kimberly Astorga PA-C [address] [place] [address] Assigned PCP 11/22/23 05/23/24 documented as of this encounter
--- OUTSIDE RECORDS SUMMARY | 2024-12-31 00:33 | XMS_ITS | Encounter Summary ---
Author Organization [facility] Address [address] [place] [address] Care Team Providers Care Ice Cream Vendor Name Role Phone Kimberly Astorga PA-C Primary Care Pr ovider Olivia Parish MD Primary Care Provider Olivia Parish MD Unavailable [phone] Olivia Parish MD Unavailable [phone] Olivia Parish MD Unavailable [phone] Chuck Clark MD Unavailable [phone] Serena Liriano MD Unavailable Amanda Miguel DO Unavailable [phone] Regan Knight MD Unavailable Olivia Parish MD Unavailable [phone] Nya Harrell APRN MANAGER APPOINTMENT Unavaila ble Kimberly Astorga PA-C Unavailable Olivia Parish MD Unavailable [phone] Olivia Parish MD Unavailable [phone] Kimberly Astorga PA-C Unavailable Encounter Details Date Type Department Care Team (Late st Contact Info) Description 03/12/2018 [facility] [address] [place] [phone] Kyung Gardiner APRN MANAGER APPOINTMENT [address] [place] [address] Social History Tobacco Use Types Packs/Day Years Used Date Smoking Tobacco: Never Smokeless Tobacco: Never Alcohol Use Standard Drinks/Week Comments No 0 (1 standard drink = 0.6 oz pur e alcohol) Comments No Sex and Gender Information Value Date Recorded Sex Assigned at Not on file Legal Sex Female 3:43 AM SHANK PINNER Gender Identity Not on file Sexual Orientation Straight 10/28/2020 3: 40 PM CDT 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 Not on file Not on file documented as of this encounter Plan of Treatment Not on file documented as of this encounter Visit Diagnoses Not on filedocumented in this encounter Additional Health Concerns Assessment Noted Time PHQ-9 Depression Total Score: 7 08/04/19 18 7:58 AM SHANK PINNER documented as of this encounter Care Teams Ice Cream Vendor Relationship Specialty Start Date End Date Kimberly Astorga PA-C [address] [place] [address] PCP - General Physician Sheet Taker 07/06/14 04/07/18 [place] [address] [place] [address] PCP - General Family Practice 04/08/18 [place] [address] [place] [address] PCP - Assigned PCP 08/05/17 09/03/18 [place] [address] [place] [address] Assigned PCP 11/23/19 12/04/20 [place] [address] [place] [place] [address] Assigned PCP 08/05/17 11/22/19 Chuck Clark MD [address] [facility] [address] [place] [address] Assigned Heart and Vascular Provider 04/23/20 04/23/21 Serena Liriano MD 516 [facility] [address] [place], [place] [address] Assigned Cancer Care Provider 04/23/20 12/04/20 Amanda Miguel DO [address] [facility] 100 [place] [address] Assigned OBGYN Provider 04/23/20 Regan Knight MD [facility] [address] [address] Assigned Surgical Provider 09/15/20 12/11/20 [place] [address] [place] [address] Assigned PCP 12/05/20 05/05/22 Nya Harrell, FARMWORKER BROODER FARM MANAGER APPOINTMENT [address] [facility] 450 [place], [place] [address] Assigned Surgical Provider 12/12/20 03/05/21 Kimberly Astorga PA-C [address] [place] [address] Assigned PCP 05/06/22 10/13/22 [place] [address] [place] [address] Assigned PCP 12/02/22 11/21/23 [place] [address] [place] [address] Assigned PCP 10/14/22 12/01/22 Kimberly Astorga PA-C [address] [place] [address] Assigned PCP 11/22/23 05/23/24 documented as of this encounter
--- OUTSIDE RECORDS SUMMARY | 2024-12-31 00:33 | XMS_ITS | Encounter Summary ---
Author Organization [facility] Address [address] [place] [address] Care Team Providers Care Associate Professor Of Philosophy Name Role Phone Olivia Parish MD Primary Care Provider Olivia Parish MD Unavailable [phone] Chuck Clark MD Unavailable [phone] Serena Liriano MD Unavailable Amanda Miguel DO Unavailable [phone] Regan Knight MD Unavailable Olivia Parish MD Unavailable [phone] Nya Harrell APRN GEOSCIENCE SPECIALIST Unavaila ble Kimberly Astorga PA-C Unavailable Olivia Parish MD Unavailable [phone] Olivia Parish MD Unavailable [phone] Kimberly Astorga PA-C Unavailable Encounter Details Date Type Department Care Team (Late st Contact Info) Description 10/28/2020 [facility] [address] [place] [phone] Zuleika Acosta MA Social History Tobacco Use Types Packs/Day Years Used Date Smoking Tobacco: Never Smokeless Tobacco: Never Alcohol Use Standard Drinks/Week Comments No 0 (1 standard drink = 0.6 oz pur e alcohol) PHQ-2 Answer Date Recorded PHQ-2 Total Score (Adult) - Positive if 3 or more points; Administer PHQ-9 if positive 0 10/28/2020 Comments No Sex and Gender Information Value Date Recorded Sex Assigned at Not on file Legal Sex Female 3:43 AM CLINICAL RESEARCH DIRECTOR Gender Identity Not on file Sexual Orientation Straight 10/28/2020 3: 40 PM CDT 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 Not on file Not on file documented as of this encounter Plan of Treatment Not on file documented as of this encounter Visit Diagnoses Not on filedocumented in this encounter Additional Health Concerns Assessment Noted Time PHQ-9 Depression Total Score: 0 10/30/19 7:03 AM CDT documented as of this encounter Care Teams Associate Professor Of Philosophy Relationship Specialty Start Date End Date Olivia Parish MD PCP - General Family Practice 04/08/18 [place] [address] [place], [place] 277[address] Assigned PCP 11/23/19 12/04/20 Chuck Clark MD [address] [facility] [address] [place], [place] [address] Assigned Heart and Vascular Provider 04/23/20 04/23/21 Serena Liriano MD 6 [facility] 88 [place] [address] Assigned Cancer Care Provider 04/23/20 12/04/20 Amanda Miguel DO [address] [facility] 100 [place] [address] Assigned OBGYN Provider 04/23/20 Regan Knight MD [facility] [address] [place] [address] Assigned Surgical Provider 09/15/2006/21 [place] [address] [place] [address] Assigned PCP 12/05/20 05/05/22 Nya Harrell APRN GEOSCIENCE SPECIALIST [address] [place] [address] [address] [place] [address] Assigned Surgical Provider 12/12/2003/05/21 Kimberly Astorga PA-C [address] [place] [address] Assigned PCP 05/06/22 10/13/22 [place] [address] [place] [place] [address] Assigned PCP 12/02/22 11/21/23 [place] [address] [place] [address] Assigned PCP 10/14/22 12/01/22 Kimberly Astorga PA-C [address] [place] [address] Assigned PCP 11/22/23 05/23/24 documented as of this encounter
--- OUTSIDE RECORDS SUMMARY | 2024-12-31 00:33 | XMS_ITS | Clinical Summary ---
Author Organization [facility] Address [address] [place] [address] Care Team Providers Care Lasting Machine Operator Bed Name Role Phone Unavailable Primary Care Provider Unavailabl e Source Comments Patient records contain information from all sites at [facility]. For routine questions regarding patient records, call [phone] during business hours, M-F 8:00 AM - 5:00 PM Central Time. Record requests for emergency care only can be directed to [phone] at any time.[facility] Allergies Active Allergy Reactions Criticality Noted Date Comments Codeine Nausea Only High 01/15/2015 Makes her sick vommittingggg Oxycodone GI intolerance High 01/30/2024 Medications * This document contains information received from the source organization and may not represent a complete record from that organization. fluticasone propion-salmeteroL 100-50 mcg/actuation diskus inhaler 1 puff 2 (two) times a day. 10/18/19 24 Active albuterol 90 mcg/actuation inhaler Inhale 1 puff as needed. 09/10/19 24 Active cetirizine (ZyrTEC) 10 mg capsule 10 mg daily. 10/31/19 24 Active multivitamin tablet Take 1 tablet by mouth daily. 08/13/19 24 Active acetaminophen (TylenoL) 500 mg tablet Take 2 tablets (1,000 mg total) by mouth every 6 (six) hours as needed for pain. Alternate with ibuprofen every 3 hours. Do not exceed 4000 mg or 4 g in 24 hours. 02/08/20 24 Active ibuprofen 200 mg tablet Take 3 tablets (600 mg total) by mouth every 6 (six) hours as needed for pain. Alternate with acetaminophen every 3 hours. 02/08/20 24 Active sennosides-docusat e sodium (Senokot-S) 8.6-50 mg per tablet Take 1 tablet by mouth 2 (two) times a day as needed for constipation. While on narcotics. 02/08/20 24 Active traMADoL (Ultram) 50 mg tabletIndications: Acute Pain Take 1 tablet (50 mg total) by mouth every 6 (six) hours as needed for pain 10 tablet 4 11:57 AM CDT 02/08/20 24 Active ondansetron ODT (Zofran-ODT) 4 mg disintegrating tablet Dissolve 1 tablet (4 mg total) in the mouth every 8 (eight) hours as needed for nausea. 10 tablet 4 11:57 AM CDT 02/08/20 24 Active nystatin (Nystop) 100,000 unit/gram powder Apply 1 Application topically 3 (three) times a day. Apply to belly button and groin rashes as needed for redness and irritation. 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/17/2023 Morbid Obesity Body Mass Index 50.0-59.9 Adult 0 07/19/2023 Obstructive Sleep Apnea Adult 07/19/2023 Stone Kidney Personal History 07/19/2023 Shortness Of Breath 07/19/2023 Symptomatic Premature Menopause 07/19/2023 Anxiety 08/21/2011 Gastroesophageal Reflux Disease NOS 07/12/2011 Family History Medical History Relation Name Comments Alcohol abuse Brother 1 Wan Coronary artery disease Brother 1 Wan IHSS -congenital Drug abuse Brother 1 Wan Alcohol abuse Brother 2 Michael Clotting disorder Brother 2 Michael Depression Brother 2 Michael Obesity Brother 2 Michael Sleep apnea Brother 2 Michael Diabetes Father Don Hypertension Father Don Obesity Father Don Rheum arthritis Father Don Transient ischemic attack Father Don Hyperlipidemia Mother Kari Osteoporosis Mother Kari Parkinson disease Mother's Sister Yaneth Anesthesia problems Paternal Grandmother Lizeth Relation Name Status Comments Brother 1 Wan Brother 2 Michael Father Don Mother Kari Mother's Sister Yaneth Paternal Grandmother Lizeth Social History Tobacco Use Types Packs/Day Years Used Date Smoking Tobacco: Never Passive Smoke Exposure: Past Smokeless Tobacco: Never Tobacco Cessation:Counseling Given: Not Answered Passive Exposure Comments:Father was a smoker. he quit when she was in 8th or 9th grade Alcohol Use Standard Drinks/Week Comments Not Currently 0 (1 standard drink = 0.6 oz pure alcohol) stopped alcohol consumption around 2013 [facility] Utilities Answer Date Recorded In the past 12 months has th e [employer], gas, oil, or water company threatened to shut off services in your home? No 07/25/2023 Hunger Vital Sign Answer Date Recorded Within the past 12 months, y ou worried that your food would run out before you got the money to buy more. Never true 07/25/19 Within the past 12 months, t he food you bought just didn't last and you didn't have money to get more. Never true 07/25/2023 PRAPARE - Transportation Answer Date Re corded In the past 12 months, has l ack of transportation kept you from medical appointments or from getting medications? No 07/03 In the past 12 months, has l ack of transportation kept you from meetings, work, or from getting things needed for daily living? No 07/25/2023 Housing Stability Answer Date Recorded What is your living situation today? [facility] live 07/25/2023 Comments No Sex and Gender Information Value Date Recorded Sex Assigned at Female 07/25/2023 4:28 PM BAND SPLITTER Legal Sex Female 7:15 AM BAND SPLITTER Gender Identity Female 07/25/2023 4:28 PM BAND SPLITTER Sexual Orientation Straight 07/25/2023 4: 28 PM BAND SPLITTER Last Filed Vital Signs Vital Sign Reading Time Taken Comments Blood Pressure 151/67 02/08/2024 1:33 PM CDT Pulse 67 02/08/2024 1:33 PM CDT Temperature 36.6 C (97.9 F) 02/08/2024 12:36 PM CDT Respiratory Rate 16 02/08/2024 1:33 PM CDT Oxygen Saturation 99% 02/08/2024 1:33 PM CDT Inhaled Oxygen Concentration - - Weight 149 kg (328 lb 7.8 oz) 04/03/2024 11:34 A M CDT Height 168.7 cm (5' 6.42) 04/03/2024 11:34 AM C DT Body Mass Index 52.36 04/03/2024 11:34 AM CDT Plan of Treatment Health Maintenance Due Date Last Done Comments CT Colonography 1965 Cologuard 1965 Hepatitis C Screening 1965 Hepatitis B Vaccines (1 of 3 - 19+ 3-dose series) 1984 Pneumococcal vaccine (50+ years) (1 of 1 - PCV) 2015 Mammogram 11/26/2020 11/27/2019 Colonoscopy 12/27/2021 12/27/2016 Colorectal Cancer Surveillance 12/27/2021 DTaP,Tdap,and Td Vaccines (2 - Td or Tdap) 04/15/2022 04/15/2012, 11/05/2005, 02/24/2005, Additional history exists COVID-19 Vaccine ( - season) 2024 Influenza Vaccine (#1) 2024 04/12/2021 Depression Screening (Annual PHQ-2) 07/02/2024 Lipid (Cholesterol) Screening 04/12/2026 04/12/2021, 01/29/2020 Fasting Glucose for Diabetes Screening 01/27/2027 01/28/2024, 12/02/2020, 01/29/2020, Additional history exists Cervical/Vaginal Cancer Screening Discontinued 01/29/2020 Zoster Vaccines Completed 01/29/2020, 11/19/2019 IPV Vaccines Aged Out No longer eligi ble based on patient's age to complete this topic Procedures Procedure Name Priority Date/Time Associated Diagnosis Comments BASIC METABOLIC PANEL, S/P Routine 01/28/2024 10:09 AM CDT Hyperplasia Endometrial With Atypia from Last 3 Months or Most Recently Relevant to Health Maintenance Results * Basic Metabolic Panel (01/28/2024 10:09 AM CDT) Potassium, S 4.3 3.6 - 5.2 mmol/L 01/28/2024 11:20 AM CDT DTL Sodium, S 139 135 - 145 mmol/L 01/28/2024 11:20 AM CDT DTL Chloride, S 105 98 - 107 mmol/L 01/28/2024 11:20 AM CDT DTL Bicarbonate, S 22 22 - 29 mmol/L 01/28/2024 11:20 AM CDT DTL Anion Gap 12 7 - 15 01/28/2024 11:20 AM CDT DTL BUN (Blood Urea Nitrogen), S 8 6 - 21 mg/dL 01/28/2024 11:20 AM CDT DTL Creatinine 0.94 0.59 - 1.04 mg/dL 01/28/2024 11:20 AM CDT DTL Estimated GFR (eGFR) 70 >=60 mL/min/BSA 01/28/2024 11:20 AM CDT DTL Comment: Estimated GFR calculated using the 2020 CKD_EPI creatinine equation. Calcium, Total, S 9.5 8.6 - 10.0 mg/dL 01/28/2024 11:20 AM CDT DTL Glucose, S 95 70 - 140 mg/dL 01/28/2024 11:20 AM CDT DTL Blood (Blood, Venous) 01/28/2024 10:09 AM CDT 01/28/2024 10:45 AM CDT Cristy Steen M.D. LAB BLOOD ADD-ON Final Result [facility] [address] [place] [address], [facility] [address] [place] [address] from Last 3 Months or Most Recently Relevant to Health Maintenance Insurance [employer] Advance Directives For more information, please contact: [phone] * Full Code (Latest Code Status on File) Date Activated Date Inactivated Comments 02/08/2024 10:55 AM 02/08/2024 4:56 PM Question Answer Comments Full Code: Not Discussed Due to: Patient not available * Full Code Date Activated Date Inactivated Comments 02/08/2024 5:50 AM 02/08/2024 10:55 AM Question Answer Comments Full Code: Discussed
--- OUTSIDE RECORDS SUMMARY | 2024-12-31 00:33 | XMS_ITS | Encounter Summary ---
Author Organization [facility] Address [address] [place] [address] Care Team Providers Care Slag Dumper Name Role Phone Kimberly Astorga PA-C Primary Care Pr ovider Olivia Parish MD Primary Care Provider Olivia Parish MD Unavailable [phone] Olivia Parish MD Unavailable [phone] Olivia Parish MD Unavailable [phone] Chuck Clark MD Unavailable [phone] Serena Liriano MD Unavailable Amanda Miguel DO Unavailable [phone] Regan Knight MD Unavailable Olivia Parish MD Unavailable [phone] Nya Harrell APRN SENIOR TECHNICAL WRITER Unavaila ble Kimberly Astorga PA-C Unavailable Olivia Parish MD Unavailable [phone] Olivia Parish MD Unavailable [phone] Kimberly Astorga PA-C Unavailable Reason for Visit * Reason Onset Date Comments Medication Refill 03/11/2018 desvenlafaxine succinate (PRISTIQ) 100 MG 24 hr tablet Encounter Details Date Type Department Care Team (Late st Contact Info) Description 03/09/[address], [address] [place] [address] [place] [address] [facility] [place] [address] Medication Refill (desvenlafaxine succinate (PRISTIQ) 100 MG 24 hr tablet) Social History Tobacco Use Types Packs/Day Years Used Date Smoking Tobacco: Never Smokeless Tobacco: Never Alcohol Use Standard Drinks/Week Comments No 0 (1 standard drink = 0.6 oz pur e alcohol) Comments No Sex and Gender Information Value Date Recorded Sex Assigned at Not on file Legal Sex Female 3:43 AM COORDINATOR MINING PRODUCTS Gender Identity Not on file Sexual Orientation Straight 10/28/2020 3: 40 PM CDT 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 Zuleika Acosta MA * Telephone Encounter - Olivia Parish MD - 03/13/2018 11:33 AM CDT Recommend a Evisit or regular visit, due to PHQ-9 and refills, has been 6 months since seen as of next month, will give 1 month supply * Telephone Encounter - Kyung Gardiner RN - 03/13/2018 7:25 AM CDT Routing refill request to provider for review/approval because: Patient needs to be seen because: Due for med check. Pt read mychart but did not respond or complete the questionnaires Kyung Gardiner RN, BSN * Telephone Encounter - Kyung Gardiner RN - 03/12/2018 9:56 AM CDT Mychart sent Per 08/03/17 appt pt was to follow up in 3 months for a med check PHQ/ISABELA sent as well Kyung Gardiner RN, BSN * Telephone Encounter - Cherelle Echevarria - 03/11/2018 8:20 AM CDT Requested Prescriptions Pending Prescriptions Disp Refills ??? desvenlafaxine succinate (PRISTIQ) 100 MG 24 hr tablet [Pharmacy Med Name: DESVENLAFAXINE SUC ER 100 MG] 90 tablet 1 Last Written Prescription Date: 08/03/17 Last Fill Quantity: 90, # refills: 1 Last Office Visit: 09/06/2017 Future Office Visit: Sig: TAKE 1 TABLET BY MOUTH EVERY DAY Serotonin-Norepinephrine Reuptake Inhibitors Failed 03/09/2018 2:03 AM Failed - PHQ-9 score of less than 5 in past 6 months PHQ-9 SCORE 05/22/2017 06/18/2017 08/03/2017 Total Score - - - Total Score MyChart - - - Total Score 8 9 7 ISABELA-7 SCORE 05/22/2017 06/18/2017 08/03/2017 Total Score - - - Total Score - - - Total Score 5 4 4 Failed - Recent (6 mo) or future (30 days) visit within the authorizing provider's specialty Patient had office visit in the last 6 months or has a visit in the next 30 days with authorizing provider or within the authorizing provider's specialty. See Patient Info tab in inbasket, or Choose Columns in Meds & Orders section of the refill encounter. Passed - Blood pressure under 140/90 in past 12 months BP Readings from Last 3 Encounters: 01/07/18 135/83 04/02/18 126/74 09/06/17 112/88 Passed - Patient is age 18 or older Passed - No active on record Passed - Normal serum creatinine on file in past 12 months Recent Labs Lab Test 09/06/17 1413 CR 0.76 Passed - No positive test in past 12 months documented in this encounter Plan of Treatment Not on file documented as of this encounter Visit Diagnoses Diagnosis Mild recurrent major depression Major depressive disorder, recurrent episode, mild documented in this encounter Additional Health Concerns Assessment Noted Time PHQ-9 Depression Total Score: 7 08/04/19 7:58 AM COORDINATOR MINING PRODUCTS documented as of this encounter Care Teams Slag Dumper Relationship Specialty Start Date End Date Kimberly Astorga PA-C [address] [place] [address] PCP - General Physician Cath Lab Tech 07/06/14 04/07/18 [place] [address] [place] [address] PCP - General Family Practice 04/08/18 [place] [address] [address] [place] [address] PCP - Assigned PCP 08/05/17 09/03/18 [place] [address] [address] [address] Assigned PCP 11/23/19 12/04/20 [place] [address] [address] [place] [address] Assigned PCP 08/05/17 11/22/19 Chuck Clark MD [address] [facility] [address] [place] [address] Assigned Heart and Vascular Provider 04/23/20 04/23/21 Serena Liriano MD [address] [facility] [address] [place], [place] [address] Assigned Cancer Care Provider 04/23/20 12/04/20 Amanda Miguel DO [address] [facility] [address] [place] [address] Assigned OBGYN Provider 04/23/20 Regan Knight MD [facility] [address] [place] [address] Assigned Surgical Provider 09/15/20 12/11/20 [place] [address] [place] [address] Assigned PCP 12/05/20 05/05/22 Nya Harrell APRN SENIOR TECHNICAL WRITER [address] [facility] [address] [place] [address] Assigned Surgical Provider 12/12/20 03/05/21 Kimberly Astorga PA-C [address] [place] [address] Assigned PCP 05/06/22 10/13/22 [place] [address] [address] [address] Assigned PCP 12/02/22 11/21/23 [place] [address] [place] [address] Assigned PCP 10/14/22 12/01/22 Kimberly Astorga PA-C [address] [place] [address] Assigned PCP 11/22/23 05/23/24 documented as of this encounter
== END 2024-12-30 15:22 | disposition home or self-care (01) ==
LOC: MAMMO 15:23
PROVIDERS: PCP Family Medicine; Visit Provider Family Medicine
DX: Z12.31 Encounter for screening mammogram for malignant neoplasm of breast (principal)
CPT/HCPCS: 77063; 77067